=== PATIENT | female | born 1995 | race Caucasian/White ===

== ENCOUNTER 2016-06-12 15:49 | Emergency (ER) | payer OTHER ==
[~2016-06-12] VITALS: Ht 152.4 cm; Wt 84.5 kg
[~2016-06-12 15:49] MED LIST: DOXY25TA46 PO; PREN1TAB25 PO; PYR50 PO
[2016-06-12 15:53] VITALS: BP 112/70; PULSE 71; RESP 20; O2SAT 95
[2016-06-12 16:40] VITALS: BP 119/46; PULSE 70; RESP 19; O2SAT 97
[2016-06-12 18:10] LABS: BASOPHILS % (AUTO) 0.2 % (0-3); EOSINOPHILS % (AUTO) 0.6 % (0-5); MONOCYTES % (AUTO) 6.1 % (4-12); Mean Corpuscular Hemoglobin 28.4 pg (27.0-35.0); Mean Corpuscular Volume 84.2 fL (81-100); NEUTROPHILS % (AUTO) 71.3 % (40-74); Platelet Count 232 bil/L (150-400)
[2016-06-12 18:31] LABS: TROPONIN T < 0.010 ug/L (0.0-0.011)
--- NOTE | 2016-06-12 18:36 | ED.REPORT ---
HPI-Chest Pain Under 40 Date of Service Jun 12, 2016 ED Provider: Jono Robles MD Pt is a 21 year old female 33 weeks presenting to the ED complaining of intermittent chest pain and tightness radiating down her arms onset 4 days ago. Associated symptoms include fatigue, SOB, lightheadedness, dizziness, diaphoresis, chills. Denies pain with inspiration, bleeding, abd cramping, cough. She states that she has been having episodes consistently for the past 4 days which last up to 30 or 45 minutes. She also reports hx of palpitations which have started again since being . Pt was seen at [facility] today and told to come to the ER. Nursing Notes Stated Complaint: CHEST PAIN//WENT TO [facility] FIRST Chief Complaint: Chest Pain Nursing Notes Reviewed: Yes Allergies: Coded Allergies: No Known Allergies (Unverified , 06/12/16) Scheduled Vit#96/Ferrous Fum/FA ( Tablet) 1 Each Tablet 1 EACH PO DAILY Pyridoxine (Vitamin B-6) 50 Mg Tablet 50 MG PO DAILY Scheduled PRN Doxylamine Succinate (Unisom) 25 Mg Tablet 25 MG PO BID PRN PRN For Nausea General Time Seen by MD: 18:29 Chief Complaint Chest pain Hx Obtained From: Patient Arrived By: Walk-in Sudden in Onset?: No Onset Occurred: 4 days ago Symptom Duration: Intermittent Location: : Chest left: Chest right Quality: Painful Severity: Current: Mild Severity: Maximum: Moderate Recent Healthcare: No recent hospitalization, Recent doctor visit Similar Sx Previous: No Past Medical History Past Medical History Hx of palpitations Reports hx of possible thick blood when she was a teenager Past Surgical History none reported Smoking History Current Every Day Smoker Social History Alcohol Use: Denies alcohol use Drug Use: Denies drug use Ambulatory Status Independent Review of Systems Constitutional: Reports: Chills, Fatigue Respiratory: Reports: Shortness of breath, Denies: Non-productive cough Cardiovascular: Reports: Chest pain, Palpitations GI: Denies: Abdominal pain Skin: Reports Diaphoresis Neurologic: Reports: Dizziness, Lightheaded Complete sys rev & neg: except as marked. Physical Exam Initial Vital Signs Vital Signs (First) Date Time Temp Pulse Resp B/P Pulse Ox O2 Delivery O2 Flow Rate FiO2 06/12/16 15:53 36.4 71 20 112/70 95 Room Air Initial VS: Reviewed Head / Eyes: Atraumatic, Normocephalic, PERRL ENT: Mucous membranes moist, Conjunctiva normal, No scleral icterus Extremities: Vascular intact, Neuro intact, No swelling, No tenderness Skin: Warm, Dry, No cyanosis Neurologic: Alert, Oriented, Nonfocal Psychiatric: Mood/affect normal, Behavior normal, Normal thought content General/Constitutional: Awake, Alert, No acute distress, Well appearing Respiratory / Chest: Breath sounds NL, Breath sounds = bilat, No respiratory distress, No rales, No rhonchi, No wheezing, No chest tenderness Cardiovascular: Heart rate NL, Regular rhythm, Heart sounds NL, No gallop, No murmurs, No rubs Abdomen: Atraumatic, Non-tender, BS normoactive Interpretation & Diagnostics Lab Results Interpretation Result Diagram: 06/12/165 06/12/165 Test 06/12/16 17:55 White Blood Count 10.1th/mm3 (3.8-10.1) Red Blood Count 4.37mil/mm3 (3.90-5.20) Hemoglobin 12.4g/dL (12.0-15.6) Hematocrit 36.8% (35.0-46.0) Mean Corpuscular Volume 84.2fL (81-100) Mean Corpuscular Hemoglobin 28.4pg (27.0-35.0) Mean Corpuscular Hemoglobin Concent 33.7% (32.0-37.0) Red Cell Distribution Width 12.1% (12.3-15.4) Platelet Count 232bil/L (150-400) Neutrophils (%) (Auto) 71.3% (40-74) Lymphocytes (%) (Auto) 21.1% (14-46) Monocytes (%) (Auto) 6.1% (4-12) Eosinophils (%) (Auto) 0.6% (0-5) Basophils (%) (Auto) 0.2% (0-3) D-Dimer 1.1mg/L (<0.50) Sodium Level 136mEq/L (134-144) Potassium Level 4.4mEq/L (3.5-5.2) Chloride Level 102mEq/L (97-108) Carbon Dioxide Level 21mmol/L (18-29) Blood Urea Nitrogen 4mg/dL (6-20) Creatinine 0.52mg/dL (0.57-1.00) Estimat Glomerular Filtration Rate 211mL/min (>59) Glucose Level 83mg/dL (60-99) Calcium Level 8.9mg/dL (8.5-10.1) Magnesium Level 1.8mg/dL (1.6-2.6) Total Bilirubin 0.3mg/dL (0.0-1.2) Aspartate Amino Transf (AST/SGOT) 15U/L (0-50) Alanine Aminotransferase (ALT/SGPT) 8U/L (0-32) Alkaline Phosphatase 125U/L (25-150) Troponin T < 0.010ug/L (0.0-0.011) Total Protein 6.5g/dL (6.4-8.4) Albumin 3.5g/dL (3.4-5.0) Hold Garcia Top Tube Received (Received) ECG Interpretation Time: 16:03 Interpreted by: ED physician Normal ECG Interpretation: Normal rate, Normal sinus rhythm X-Ray Chest Interpretation Chest Xray Interpretation: IMPRESSION: No acute disease Dictated by: Harry Smith M.D. on 06/12/2016 at 19:04 View: Portable, 1 view Interpretation / Wet Read by: Interpret - Radiologist CT Chest Interpretation IMPRESSION: No pulmonary embolism. No acute consolidation. Dictated by: Harry Smith M.D. on 06/12/2016 at 20:48 Study type: CT pulm angiogram Interpretation / Wet Read by: Interpret - Radiologist Re-Eval/Medical Decision Re-Evaluation/Progress : Time of Eval: 21:15 Patient Status: Condition improved Re-Evaluation/Progress Note: Discussed x ray and CT results and plan for discharge. Pt understands and agrees with plan. All pt questions addressed. Pt ready to go home. Counseled Regarding: Diagnosis, Lab results, Need for follow-up, When/why to return to ED Discharge & Departure Primary Impression: Chest pain Chest pain type: unspecified Qualified Code: R07.9 - Chest pain, unspecified Disposition: Home Discharge Condition All VS Reviewed: Yes Condition: Improved Additional Instructions: ED evaluation included interview, exam, ECG and Chest CT. No serious cause for chest pain is found tonight. It is safe to go home and use tylenol as needed for pain. If you have fevers or shortness of breath, re-check in ED. Follow up with your OB doctor soon. Referrals: Boston Calderon MDibsergey Attestation Portions of this note were transcribed by Rosa Orantes. I, Dr. Robles personally performed the history, physical exam and medical decision-making; I reviewed and confirmed the accuracy of the information in the transcribed note. Signed by : Jeri Trinh, 06/12/2016 and 2121. copies to: Boston Calderon MD; Leah Wyatt Donald L MD Jun 12, 2016 18:36 ROSA ORANTES Jun 12, 2016 18:52
[2016-06-12 18:37] LABS: Magnesium 1.8 mg/dL (1.6-2.6)
[2016-06-12] MEDS ORDERED: 0.9% Sodium Chloride 1,000 ML IV ONE (18:55)
--- NOTE | 2016-06-12 19:06 | DRSVH ---
PROCEDURE: X-RAY CHEST ONE VIEW, PORTABLE ([id number]) INDICATIONS: chest pain TECHNIQUE: One view of the chest was acquired. COMPARISON: None. FINDINGS: Surgical changes and devices: None. Lungs and pleura: No pleural effusions or pneumothorax. Lungs are clear. Mediastinum: Mediastinal contours appear normal. Heart size is normal. Bones and chest wall: No suspicious bony lesions. Overlying soft tissues appear unremarkable. IMPRESSION: No acute disease Dictated by: Harry Smith M.D. on 06/12/2016 at 19:04 Approved by: Harry Smith M.D. on 06/12/2016 at 19:04
--- NOTE | 2016-06-12 20:52 | DRSVH ---
PROCEDURE: CT ANGIO CHEST PULMONARY EMBOLISM ([id number]) INDICATIONS: chest pain concern for PE TECHNIQUE: After the administration of intravenous contrast, 2 mm thick sections acquired from the pulmonary api sakshi to the posterior costophrenic angles. 3-dimensional maximum intensity projection (MIP) coronal a nd sagittal reformats were then acquired through the thorax. For radiation dose reduction, the follo wing was used: automated exposure control, adjustment of mA and/or kV according to patient size. COMPARISON: None. FINDINGS: Image quality: Excellent. Pulmonary arteries: Pulmonary arteries are normal in size, and demonstrate no intraluminal filling d efects to suggest central pulmonary embolism. Lungs and pleura: Lungs are clear. No pleural effusions or pneumothorax. Central and peripheral ai rways are patent. Mediastinum: Heart size is normal, without pericardial effusion. No mediastinal or hilar adenopathy . Thoracic aorta is normal in caliber and enhancement. Esophagus is normal in caliber, without hiat al hernia. Bones and chest wall: No suspicious bony lesions. Ribs and thoracic spine appear intact throughout. Thyroid gland negative. No axillary or supraclavicular adenopathy. Abdomen: Visualized upper abdominal solid organs appear normal in the early arterial phase of enhanc ement. IMPRESSION: No pulmonary embolism. No acute consolidation. Dictated by: Harry Smith M.D. on 06/12/2016 at 20:48 Approved by: Harry Smith M.D. on 06/12/2016 at 20:50
[2016-06-12 21:29] VITALS: BP 122/52; PULSE 70; RESP 19; O2SAT 97
== END 2016-06-12 21:31 | disposition home or self-care (01) ==
LOC: SED 15:49
DX: O26.893 Other specified pregnancy related conditions, third trimester (principal); O99.333 Smoking (tobacco) complicating pregnancy, third trimester; R07.89 Other chest pain; Z3A.33 33 weeks gestation of pregnancy
CPT/HCPCS: 36415; 71010; 71275; 80053; 83735; 84484; 85025; 85379; 93005; 99285; G0463; J7030; Q9967

== ENCOUNTER 2016-08-06 07:05 | Inpatient (IN) | payer OTHER ==
[~2016-08-06] VITALS: Ht 152.4 cm; Wt 84.8 kg
[2016-08-06] MEDS ORDERED: Methylergonovine 0.2 mg/mL Inj IM PRN (07:20)
[2016-08-06] MEDS ORDERED: Oxytocin 30 Units/500 mL LR 30 UNITS in IV Premix 1 EACH IV PRN ×2 (07:20→08:05)
[2016-08-06] MEDS ORDERED: Hemorrhage Kit, Post Partum XX ONE (07:20)
[2016-08-06] MEDS ORDERED: Sodium Chloride LOK Flush 10 mL Syringe IVFLUSH PRN (07:20)
[2016-08-06] MEDS ORDERED: Carboprost 250 mCg/mL Inj IM PRN (07:20)
[2016-08-06] MEDS ORDERED: Oxytocin 10 Unit/mL Inj IM PRN (07:20)
[2016-08-06] MEDS ORDERED: Ondansetron 2 mg/mL 2 mL Inj IVPUSH PRN ×2 (08:10→09:00)
[2016-08-06] MEDS ORDERED: Penicillin G K Inj 5,000,000 UNITS in Dextrose 5% Minibag Plus 100 ML IV ONE (08:10)
--- NOTE | 2016-08-06 08:21 | PCM.HPOB ---
Subjective Date of Service: Aug 06, 2016 Referring Provider: Admitting Physician: Mara Rodriguez MD Primary Care Physician: Leah Wyatt Attending Physician: Mara Rodriguez MD Chief Complaint Contractions and planned induction History of Present History of Present Illness The patient is a 21-year-old female at 41 weeks 4 days with EDC of who presents for induction. is complicated by tobacco use, varicella nonimmune, and group B strep positive. Patient has been alis every 3-5 minutes for the last 24-36 hours. She is currently alis every 2-4 minutes with contractions lasting 40 seconds. Spontaneous rupture of membranes at 0820 with some meconium staining. movement is present and baseline heart rate is 130 with a category 1 tracing. Patient states pain is a 8 out of 10. She would like to have an epidural placed. She has some nausea but no emesis. She denies any shortness of breath, chest pain, labs include AB+, antibody screen negative, varicella nonimmune, rubella immune, hepatitis B surface antigen negative, HIV nonreactive, and group B strep positive. OB History: (1), Para (0) Past Medical History Obstetrical History: Gynecologic History: Pap smear on 02/01/16 normal Medical History: None Surgical History: None Hx Tobacco Use: Yes Smoking Status: Current Every Day Smoker Hx Alcohol Use: No Hx Substance Use: No Past Family History Family History Mother - DM Father - HTN Genetic Screening/Counseling Genetic Screening/Counseling: Negative Baby father-had child w defect: No Review of Systems Constitutional: Y: Change of appitite, Chills, Dizziness, Fever, Malaise, Other , Pain, Sweats, Weakness, Weight loss Eyes: Denies: Blurred Vision, Conjunctive Inflammation, Double Vision, Eyelid Inflammation, Other, Pain, Redness, Vision Changes Cardiovascular: Denies: Chest Pain, Edema, Orthopnea, Other, Palpitations, SOB while laying flat Respiratory: Denies: Cough, Cough with bloody sputum, Other, Pleuritic Chest Pain, Pleuritic Chest Pain, SOB with Exertion, Sputum, Wheezing Gastrointestinal: Reports: Abdominal Pain Genitourinary: Denies: Anuria, Change in Frequency, Dysuria, Hematuria, Incontinence, Nocturia, Other, Retention Musculoskeletal: Denies: Back Pain, Deformity, Limitation of Function, Neck Pain, Other, Redness, Shoulder Pain, Swelling Skin/Breasts: Denies: Bruising, Discharge, Dry or Flakiness, Jaundice, Lesions , Masses, Mastalgia, Other, Rash, Scars, Ulcers Neurological: Denies: Change in Speech, Confusion, Dizziness, Incoordination, Numbness, Other, Seizures, Somnolence, Tremors, Weakness Psychologic: Denies: Agitation, Anxious, Apprehensive, Depression, Insomnia, Instability, Nervousness, Other Hematologic: Denies: Abnormal bleeding, Adenopathy, Bruising, Other Medications Home medications vitamins Allergy Coded Allergies: No Known Allergies (Unverified , 06/12/16) Exam Vital Signs Afebrile, blood pressure 124/73, pulse 106, respiratory rate 20 Exam heart rate 130s at baseline with a category 1 tracing Constitutional: Well-developed, Well-nourished HEENT: Atraumatic, PERRLA, EOMI, Scleral Anicteric Lungs: Clear to Auscultation, Normal Air Movement Heart: Regular Rate/Rhythm, Normal S1, Normal S2, No Murmurs/Rubs/Gallops Abdomen: Gravid, Normal bowel sounds Extremities: Pulses Palpable x4, Other (lower extremity edema) Neurological/Psychiatric: Alert, Oriented X3, Mild Distress Neuro: Grossly Neurologically Intact Additional Information Cervical exam: 2 cm dilated, and -2 station, 100% effaced Labs/Diagnostics Labs Results pending Maternal Blood Type: AB Hx Rho(D) Immune Globulin: No Antibody Screen: negative Group B Strep Results: Positive Previous with GBS: No Rubella: Immune OB Intrapartum Assessment/Plan Assessment 1. Term intrauterine in active labor with spontaneous rupture of membranes at 0820. 2. Tobacco use during . 3. Group B strep positive. 4. Varicella nonimmune. Pain Management: Epidural planned Intrapartum plan 1. Routine labor care and lab work. 2. Pain control: Epidural to be placed by Dr. Chávez. 3. Penicillin G 5 million units IV for initial dose followed by 3 million units every 4 hours 4. Smoking cessation counseling provided. 5. Augmentation of labor with Pitocin if needed. Attending Statement The patient was seen and examined together with Dr. Ziyad Dela Cruz DO on 2016 and I agree with the history, exam and plan as outlined in the note above. ZIYAD DELA CRUZ DO Aug 06, 2016 08:21 Amber Gar MD Aug 09, 2016 12:00
--- NOTE | 2016-08-06 08:55 | PCM.HPANE ---
Patient Data Surgeon Admitting Provider:Mara Rodriguez MD Attending Provider:Mara Rodriguez MD Primary Care Physician:Leah Wyatt Other Provider:Ella Gandhiingham Anesthesia Reason for Visit Induction INDUCTION Ht/WT & BMI Body Mass Index Allergies Coded Allergies: No Known Allergies (Unverified , 06/12/16) Diabetes History Hx Diabetes?: No Medications Active Scripts Pyridoxine (Vitamin B-6)50 Mg [id number] Mg PO DAILY #30 TABLET Prov:Corky Rizo MD 01/25/16 Doxylamine Succinate (Unisom)25 Mg [id number] Mg PO BID PRN For Nausea #30 TABLET Prov:Corky Rizo MD 01/25/16 Reported Medications Vit#96/Ferrous Fum/FA ( Tablet)1 Each Tablet1 Each PO DAILY 12/17/15 History Cardiovascular History: Denies:: Congestive Heart Failure Hypertension Respiratory History: Denies:: Tuberculosis Hx Surgeries?: No Hx Diabetes: No Hx Alcohol Use: NoHx Substance Use: No Smoking Status: Current Every Day Smoker Stop/Bang Risk Assessment Category Category 1A: Patient has history of documented sleep apnea, and HAS NOT received any narcotic, sedative or anesthesia administration during this stay. Category 1B: Patient has history of documented sleep apnea, and HAS received any narcotic , sedative or anesthesia administration during this stay Category 2: Patient has SUSPECTED Obstructive Sleep Apnea, and HAS received any narcotic , sedative or anesthesia administration during this stay. Category 3: Patient has SUSPECTED Obstructive Sleep Apnea and HAS NOT received narcotic, sedative or anesthesia administration during this stay. Category 4: Outpatient in Procedural Areas with known sleep apnea or who screen positive for High Risk via the STOP/BANG questionnaire. Exam Exam General Appearance: Alert, Oriented X3, Cooperative HEENT/AIRWAY: MP 2, Neck Movement (from), Mouth Opening (wnl) Lungs: Normal Air Movement Plan Impression Patient chart reviewed, patient interviewed and anesthestic plan with risks, benefits, and alternatives discussed, and informed consent obtained. ASA Physical Status: ASA2 Mod Systemic Disease Anesthetic Plan: Epidural HP Complete Prior to Induction: Yes Scar Chávez MD Aug 06, 2016 08:55
[2016-08-06] MEDS ORDERED: Lactated Ringer's 500 ML IV ONE (08:56)
[2016-08-06] MEDS ORDERED: Atropine 1 mg/10 mL (Code) Syringe IVPUSH PRN (09:00)
[2016-08-06] MEDS ORDERED: EPHEDrine Sulfate 50 mg/mL Inj IVPUSH PRN (09:00)
[2016-08-06] MEDS: Lactated Ringer's 1,000 ML IV PRN ×3 (09:08→14:30)
[2016-08-06 09:16] LABS: Mean Corpuscular Volume 80.1 fL (81-100)
--- NOTE | 2016-08-06 10:33 | PCM.ANEP1 ---
Post Anesthesia Phase 1 PACU Phase 1 Assessment Date of Service: Aug 06, 2016 Anesthetic Administered: Epidural Level of Alertness: Awake, talking CARRANZA's with Equal Strength: Yes Pain: Yes Nausea or Vomiting: No Oxygen Delivery: Room Air Lungs: Normal Air Movement Dermatome Level: T10 (Umbilicus) Scar Chávez MD Aug 06, 2016 10:33
[2016-08-06] MEDS ORDERED: Ondansetron 2 mg/mL 2 mL Inj ONE (10:59)
[2016-08-06] MEDS ORDERED: fentaNYL-PF 50 mCg/mL 2 mL Inj ONE (10:59)
[2016-08-06] MEDS ORDERED: Oxytocin 10 Unit/mL Inj ONE (10:59)
[2016-08-06] MEDS ORDERED: Lidocaine PF 1% 30 mL Inj ONE (10:59)
[2016-08-06] MEDS ORDERED: Morphine PF 1 mg/mL 10 mL Inj ONE (10:59)
[2016-08-06] MEDS: Penicillin G K Inj 3,000,000 UNITS in IV Premix 1 EACH IV SCH ×3 (13:08→20:55)
[2016-08-06] MEDS: Lactated Ringer's 1,000 ML IV SCH ×5 (15:34→23:20)
[2016-08-06] MEDS: fentaNYL 2 mCg/mL-Bupiv 0.125% 100 ML EPIDURAL SCH ×2 (16:41→22:29)
--- NOTE | 2016-08-06 17:28 | PCM.PNOBIP ---
Subjective Date of Service Aug 06, 2016 Delivery plan: Spontaneous Vaginal Delivery Visit History The patient is a 21-year-old female at 41 weeks 4 days with EDC of who presents for induction. is complicated by tobacco use, varicella nonimmune, and group B strep positive. Patient has been alis every 3-5 minutes for the last 24-36 hours. Spontaneous rupture of membranes at 0820 with some meconium staining. movement is present and baseline heart rate is 130 with a category 1 tracing. Patient states pain is a 8 out of 10. Epidural has been placed. She has been started on Pitocin. IUPC and scalp monitor have been placed at 5 pm for better monitoring. She has some nausea but no emesis. Subjective Patient is feeling pelvic pressure and contractions. She is getting tired and emotional. Pitocin has been decreased as she was alis every minute. She is still c/o nausea but no emesis. She has IUPC and scalp monitor in place. Pain Management: Epidural Group B Strep Results: Positive Rubella: Immune Blood Type: AB Labs Laboratory Tests 08/06/16 09:00: White Blood Count 11.7, Red Blood Count 4.63, Hemoglobin 12.5, Hematocrit 37.1, Mean Corpuscular Volume 80.1, Mean Corpuscular Hemoglobin 27.0, Mean Corpuscular Hemoglobin Concent 33.7, Red Cell Distribution Width 13.7, Platelet Count 254 Exam Vital Signs Vital Signs Vital Signs Date Time Temp Pulse Resp B/P Pulse Ox O2 Delivery O2 Flow Rate FiO2 08/06/16 10:33 Room Air Contraction frequency in minutes: MVUs: Vital Signs: VS reviewed, stable Heart Tracings Heart Tones Baseline 130-150 bpm Heart Rate Variability: Moderate Heart Rate Accelleration: Present Heart Rate Category: I Tocometry/IUPC Contraction frequency in minutes:1-2 Sterile Vaginal Exam Cervical Dilation: 5 cms Cervical Effacement: 100 % Station: -1 Exam Abdomen: Fundus firm Extremities: No tenderness/swelling Lungs: Normal Air Movement Heart: Regular Rate/Rhythm, Normal S1, Normal S2, No Murmurs/Rubs/Gallops General: Alert, Oriented X3, Cooperative OB Intrapartum Assessment/Plan Assessment 1. Term intrauterine in active labor with spontaneous rupture of membranes at 0820. 2. Tobacco use during . 3. Group B strep positive. 4. Varicella nonimmune. Pain Management: Epidural planned Intrapartum plan 1. Continue routine labor care 2. Pain control: Epidural to be placed by Dr. Chávez. 3. IUPC and scalp monitor placed by Dr. Gar 3. Continue Penicillin IV 3 million units every 4 hours 4. Continue augmentation of labor with Pitocin if needed Attending Statement The patient was seen and examined together with Dr. Dora Reyes DO on 2016 and I agree with the history, exam and plan as outlined in the note above. Dora Reyes DO Aug 06, 2016 17:28 Amber Gar MD Aug 09, 2016 12:02
[2016-08-06 21:20] LABS: Mean Corpuscular Hemoglobin 26.8 pg (27.0-35.0); Mean Corpuscular Volume 82.3 fL (81-100)
[2016-08-06] MEDS ORDERED: Sodium Citrate-Citric Acid 15 mL Solution PO SCH (23:25)
[2016-08-06] MEDS ORDERED: CeFAZolin Inj 2 GM in IV Premix 1 EACH IV ONE (23:25)
[2016-08-06] MEDS ORDERED: Sodium Citrate-Citric Acid 15 mL Solution ONE (23:31)
[2016-08-06] MEDS ORDERED: Ampicillin 2,000 mg Inj ONE (23:40)
[2016-08-06] MEDS ORDERED: 0.9% Sodium Chloride 50 ML IV ONE (23:41)
[2016-08-07] MEDS ORDERED: Morphine PF 1 mg/mL 10 mL Inj EPIDURAL ONE
[2016-08-07] MEDS ORDERED: Atropine 0.4 mg/mL Inj IV PRN
[2016-08-07] MEDS ORDERED: Ondansetron 2 mg/mL 2 mL Inj IVPUSH PRN
[2016-08-07] MEDS ORDERED: Dexamethasone 4 mg/mL Inj IVPUSH PRN
[2016-08-07] MEDS ORDERED: EPHEDrine Sulfate 50 mg/mL Inj IVPUSH PRN
[2016-08-07] MEDS ORDERED: fentaNYL-PF 50 mCg/mL 2 mL Inj IVPUSH PRN
[2016-08-07] MEDS ORDERED: HYDROmorphone 1 mg/mL Inj IVPUSH PRN
[2016-08-07] MEDS: Penicillin G K Inj 3,000,000 UNITS in IV Premix 1 EACH IV SCH ×6 (00:30→20:30)
[2016-08-07] MEDS: Lactated Ringer's 1,000 ML IV SCH ×7 (00:56→17:27)
[2016-08-07] MEDS ORDERED: Carboprost 250 mCg/mL Inj IM PRN (01:30)
[2016-08-07] MEDS ORDERED: Oxytocin 30 Units/500 mL LR 30 UNITS in IV Premix 1 EACH IV PRN (01:30)
[2016-08-07] MEDS ORDERED: Oxytocin 10 Unit/mL Inj IM PRN (01:30)
[2016-08-07] MEDS ORDERED: hydrOXYzine Pamoate 25 mg Capsule PO PRN (01:30)
[2016-08-07] MEDS ORDERED: LANOlin HPA 7 Gm Ointment TOPICAL PRN (01:30)
[2016-08-07] MEDS ORDERED: Promethazine 50 mg Rectal Suppository RECTAL PRN (01:30)
[2016-08-07] MEDS ORDERED: Sodium Chloride LOK Flush 10 mL Syringe IVFLUSH PRN (01:30)
[2016-08-07] MEDS ORDERED: Hemorrhage Kit, Post Partum XX ONE (01:30)
[2016-08-07] MEDS ORDERED: Methylergonovine 0.2 mg/mL Inj IM PRN (01:30)
--- NOTE | 2016-08-07 01:39 | PCM.ANEP1 ---
Post Anesthesia Phase 1 PACU Phase 1 Assessment Date of Service: Aug 06, 2016 Anesthetic Administered: Epidural Level of Alertness: Sleepy, easy to arouse CARRANZA's with Equal Strength: No Pain: No Nausea or Vomiting: No Oxygen Delivery: Room Air Lungs: Normal Air Movement Dermatome Level: T10 (Umbilicus) Summary HR 148, RR 17, Level = T-10, RA SPO2= 98%,No N/V, BP = 117/66 Scar Chávez MD Aug 07, 2016 01:39
[2016-08-07] MEDS: Acetaminophen IV 1,000 MG in IV Premix 1 EACH IV PRN ×2 (03:22→09:44)
[2016-08-07] MEDS ORDERED: Promethazine 25 mg Rectal Suppository RECTAL PRN (04:06)
--- NOTE | 2016-08-07 05:21 | PCM.ANEP2 ---
Post Anesthesia Evaluation ASA/CMS Post Anesthesia VS in Patient's Normal Range?: Yes Resp Stable; Airway Patent?: Yes CV Function & Hydration Stable: Yes Mental Status Recovered?: Yes Pain control Satisfactory?: Yes N/V Control Satisfactory?: Yes Scar Chávez MD Aug 07, 2016 05:21
[2016-08-07] MEDS: Ascorbic Acid 500 mg Tablet PO SCH (19:21)
[2016-08-07] MEDS: oxyCODONE-Acetamin 5-325 mg Tablet PO PRN (19:22)
[2016-08-08] MEDS: oxyCODONE-Acetamin 5-325 mg Tablet PO PRN ×2 (00:18→05:55)
[2016-08-08 06:05] LABS: Mean Corpuscular Hemoglobin 27.3 pg (27.0-35.0); Mean Corpuscular Volume 83.8 fL (81-100)
[2016-08-08] MEDS ORDERED: Ascorbic Acid PO (06:48)
[2016-08-08] MEDS ORDERED: IBUP800T28 PO (06:48)
[2016-08-08] MEDS ORDERED: DOCU-41 PO (06:48)
[2016-08-08] MEDS ORDERED: OXYC1TAB24 PO (06:48)
[2016-08-08] MEDS ORDERED: FERR-74 PO (06:48)
[2016-08-08] MEDS: Ascorbic Acid 500 mg Tablet PO SCH (07:40)
--- NOTE | 2016-08-08 07:49 | PCM.DIOB ---
Obstetrical Disch Instruction Date of Service: Aug 08, 2016 Dates of Hospitalization Date of Hospital Admission Aug 06, 2016 at 07:05 Providers Admitting Physician: Mara Rodriguez MD Primary Care Physician: Leah Wyatt Attending Physician: Mara Rodriguez MD Discharge Diagnosis Discharge Diagnosis 1. G1 now P1 postop day 1 after 2. Tobacco use during . 3. Group B strep positive. 4. Varicella nonimmune. Problems: Diet Discharge Diet: No restrictions Activity Discharge Activity-General: Pelvic Rest for 6 weeks, Be up and about, Balance rest and activity, Activity as pain allows, Activity as energy allows, No lifting >10 pounds for 4-6 weeks Dressing and Incisional Care Dressing Care: Allow Steri Stripes to fall off Hygiene: May shower, DO NOT soak incision under water, NO bathtub, hot tub or whirlpool, Sitz bath Additional Instructions Discharge Instructions Continue your vitamin. Please take the iron and vitamin c together for your anemia. Do not take more pain medication (Percocet) than is necessary -- less is better. Percocet pills have Tylenol (acetaminophen) in them at 325mg per pill. Do not take Tylenol in addition to your pain medication but should take one or the other. Both iron and Percocet can give you constipation so you have also been given a prescription for docusate to keep you regular. Be sure to follow up in 2 weeks and then again in 6 weeks at [facility]. Pelvic rest for 6 weeks (nothing per vagina including intercourse, tampons) If you have a fever greater than 100.4, please call [facility]. There is always someone tongue and quarter stitcher to talk to. If you have an increase in bleeding, call [facility]. If you have a lot of bleeding suddenly, especially if you have symptoms of dizziness & weakness with it, get emergency help. If you start experiencing extreme depression, especially if you feel that you are a danger to yourself or your family, seek emergency help. You have been through a lot -- BE SURE TO TAKE CARE OF YOURSELF. You have been sent home with the following prescriptions: - Percocet 5/325 mg, take 1 tab every 4-6 hours as needed for pain. - Colace 100 mg twice a day as needed for constipation. - Ferrous sulfate 325 mg every day. - Vitamin C 500 mg every day. Take with iron. - Ibuprofen 800mg take 1 tab every 8 hours as needed for pain. Follow Up Plan Follow Up Plan Follow up in 2 and 6 weeks with [facility] Follow-up Provider (F9): Mara Rodriguez MD Follow-up appointment: Weeks (2 and 6) ZIYAD DELA CRUZ DO Aug 08, 2016 06:40
--- NOTE | 2016-08-08 07:57 | PCM.DC.OB ---
Obstetrical Discharge Summary Date of Service Aug 08, 2016 Date of hospital admission Aug 06, 2016 at 07:05 Date of Discharge: Aug 08, 2016 Providers Admitting Physician: Mara Rodriguez MD Primary Care Physician: Leah Wyatt Attending Physician: Mara Rodriguez MD Diagnosis at Time of Discharge 1. G1 now P1 postop day 1 after 2. Tobacco use during . 3. Group B strep positive. 4. Varicella nonimmune. Problems: Invasive procedures Primary Date of Procedure: Aug 07, 2016 Brief History and Physical: Per H&P: The patient is a 21-year-old female at 41 weeks 4 days with EDC of who presents for induction. is complicated by tobacco use, varicella nonimmune, and group B strep positive. Patient has been alis every 3-5 minutes for the last 24-36 hours. She is currently alis every 2-4 minutes with contractions lasting 40 seconds. Spontaneous rupture of membranes at 0820 with some meconium staining. movement is present and baseline heart rate is 130 with a category 1 tracing. Patient states pain is a 8 out of 10. She would like to have an epidural placed. She has some nausea but no emesis. She denies any shortness of breath, chest pain, labs include AB+, antibody screen negative, varicella nonimmune, rubella immune, hepatitis B surface antigen negative, HIV nonreactive, and group B strep positive. Hospital Course: The patient is a 21-year-old G1 now P1 female who presented at 41 weeks 4 days with EDC of 07/26/16 for induction. was complicated by tobacco use, varicella nonimmune, and group B strep positive. Patient had spontaneous rupture of membranes on 08/06 at 0820. Pitocin was started due to failure to progress. Contractions became too close together Pitocin had to be decreased. Patient failed to make progress and was taken for primary on 08/07. Penicillin was given intrapartum due to group B strep. ([Ascorbic Acid]) 500 MG TABLET 500 MG PO DAILYWM Prescribed by: ZIYAD DELA CRUZ DO Docusate Sodium (Colace) 100 Mg Capsule 100 MG PO BID Prescribed by: ZIYAD DELA CRUZ DO Ferrous Sulfate (Feosol) 325 Mg Tablet 325 MG PO DAILY Prescribed by: ZIYAD DELA CRUZ DO Ibuprofen (Ibuprofen) 800 Mg Tablet 800 MG PO Q6H PRN PRN For Pain Prescribed by: ZIYAD DELA CRUZ DO Vit#96/Ferrous Fum/FA ( Tablet) 1 Each Tablet 1 EACH PO DAILY ( Reported) oxyCODONE-Acetaminophen 5-325 mg (oxyCODONE-Acetaminophen 5-325 mg) 1 Each Tablet 1 TAB PO Q4-6H PRN PRN For Pain Prescribed by: ZIYAD DELA CRUZ DO Discontinued Medications Doxylamine Succinate (Unisom) 25 Mg Tablet 25 MG PO BID PRN PRN For Nausea Prescribed by: BHARAT CALHOUN MD Pyridoxine (Vitamin B-6) 50 Mg Tablet 50 MG PO DAILY Prescribed by: BHARAT CALHOUN MD Discharge Medications: - Percocet 5/325 mg, take 1 tab every 4-6 hours as needed for pain. - Colace 100 mg twice a day as needed for constipation. - Ferrous sulfate 325 mg every day. - Vitamin C 500 mg every day. Take with iron. - Ibuprofen 800mg take 1 tab every 8 hours as needed for pain. Follow-up plan Follow up in 2 and 6 weeks with [facility] Discharge Diet: No restrictions Discharge Activity-General: Pelvic Rest for 6 weeks, Try not to overdue, Be up and about, Balance rest and activity, Activity as pain allows, Activity as energy allows, Other (No lifting >10 pounds for 4-6 weeks) Patient instructions Continue your vitamin. Please take the iron and vitamin c together for your anemia. Do not take more pain medication (Percocet) than is necessary -- less is better. Percocet pills have Tylenol (acetaminophen) in them at 325mg per pill. Do not take Tylenol in addition to your pain medication but should take one or the other. Both iron and Percocet can give you constipation so you have also been given a prescription for docusate to keep you regular. Be sure to follow up in 2 weeks and then again in 6 weeks at [facility]. Pelvic rest for 6 weeks (nothing per vagina including intercourse, tampons) If you have a fever greater than 100.4, please call [facility]. There is always someone destination coordinator to talk to. If you have an increase in bleeding, call [facility]. If you have a lot of bleeding suddenly, especially if you have symptoms of dizziness & weakness with it, get emergency help. If you start experiencing extreme depression, especially if you feel that you are a danger to yourself or your family, seek emergency help. You have been through a lot -- BE SURE TO TAKE CARE OF YOURSELF. You have been sent home with the following prescriptions: - Percocet 5/325 mg, take 1 tab every 4-6 hours as needed for pain. - Colace 100 mg twice a day as needed for constipation. - Ferrous sulfate 325 mg every day. - Vitamin C 500 mg every day. Take with iron. - Ibuprofen 800mg take 1 tab every 8 hours as needed for pain. ZIYAD DELA CRUZ DO Aug 08, 2016 07:56
[2016-08-08 10:26] VITALS: BP 119/59; PULSE 72; RESP 18
--- NOTE | 2016-08-08 22:39 | OP ---
[address] [address] OPERATIVE REPORT PATIENT: SOFIA MCCOLLUM : 1995 MR#: [id number] ADMIT: 08/06/2016 JOB ID: [id number] DATE OF SURGERY: 08/07/2016 PREOPERATIVE DIAGNOSIS(ES): 1. Arrest of dilatation. 2. Intrauterine at 41 weeks and 4 days. POSTOPERATIVE DIAGNOSIS(ES): 1. Arrest of dilatation. 2. Intrauterine at 41 weeks and 4 days. 3. Status post primary section. OPERATION: Low transverse section via Pfannenstiel skin incision. SURGEON: Karly Perla MD. MONUMENT ERECTOR: Tania Reeder MD. Stretch Machine Operator was required for retraction and exposure and safe delivery of the . COMPLICATIONS: None. ESTIMATED BLOOD LOSS: 700 mL. IV FLUIDS: 1100 mL. URINE OUTPUT: 150 mL. ANESTHESIA: Epidural. FINDINGS: Normal uterus, tubes, and ovaries. Meconium-stained amniotic fluid. Cephalic presented fetus was high in the pelvis with one nuchal cord. Weight 3878 g, equivalent to 8 pounds 9 ounces. Apgars 7 at one minute and 9 at five minutes. INDICATION: This is a 21-year-old, 1, para 0, presented in active labor at 41 weeks and 4 days with spontaneous rupture of membranes at 8:20, August 06, 2016, meconium stained fluid, patient was alis. At presentation, cervix was 2 cm, and 100% effaced, and -2 station. Patient continued to contract and made cervical change up to 3 cm. That was 6 hours later after membrane rupture. Pitocin was started for augmentation at around 1400 hours, August 06, 2016. Patient progressed in labor to 6 cm dilated at 18:43 with no cervical change. Four hours later, cervix remained at 6 cm, 100%, and -1 station. The patient was offered primary section for arrest of dilatation. Risks and benefits and alternatives of section were discussed with the patient in details. All questions were answered. Informed consent was signed. PROCEDURE IN DETAIL: After informed consent was obtained, the patient was taken to the operation room. Epidural anesthesia was bolused to adequate anesthesia level. She was placed in supine position with left lateral tilt. Abdomen was prepped in usual sterile fashion. Patient was draped. A Pfannenstiel skin incision was made at the level of two finger widths above the symphysis pubis. The initial skin incision was carried down to the fascia with sharp dissection and Bovie cautery. The initial fascial incision was made with a scalpel and was extended bilaterally with curved Fajardo scissors. The inferior aspect of the fascial layer was elevated in either sides of the midline with Tanvi clamps. Underlying rectus muscles was dissected off with blunt and sharp dissection. The attention was turned to the upper edge of the fascial incision that was grasped with Tanvi clamps at either sides of the midline and was dissected off the underlying muscles with blunt and sharp dissection. The rectus muscles were in the midline. The peritoneum was entered and area cleared of vascularity. The initial peritoneal incision was extended with sharp dissection, then further re-extended with gentle traction bilaterally. Bladder blade was placed and bladder flap was created with Metzenbaum scissors. The bladder reflection was repositioned. The uterine incision was made with a scalpel. Meconium-stained fluid was noted. A cephalic presented was delivered. The 's head was noted to be high in the pelvis with large caput. The head was delivered, nuchal cord was released, shoulders delivered without difficulty. Delayed cord clamp was performed after 1 minute. was handed off to the awaiting intensive care unit team. Placenta was delivered manually intact. Uterus was exteriorized, cleared of any remaining clots and debris. Uterine incision was closed with 0-Vicryl in a running, interlocking fashion. A second imbricating layer using 0 Monocryl was performed with good hemostasis. The posterior cul-de-sac was cleared of any remaining clots and debris. The uterus was placed back into the abdominal cavity. Copious irrigation was performed to the peritoneal cavity before and after the uterus returned. The uterine incision was examined and hemostasis was ensured. Some small vessels were oozing over the bladder. FloSeal was placed with good hemostasis. Then, the rectus muscles were approximated in the midline with simple interrupted stitches of 0-chromic. The subfascial layer was examined and was hemostatic. The fascia was closed with 0-Vicryl in a running fashion. The subcutaneous tissue was approximated with simple interrupted stitches of 2-0 chromic. The skin was closed with 4-0 Vicryl in subcuticular fashion. Steri-Strips were applied. All instrument, needles, and sponge counts were correct x2. Patient tolerated the procedure well. Karly Pineda MD, was present and scrubbed for the entire procedure. MOJGAN
== END 2016-08-08 11:00 | disposition home or self-care (01) | DRG 766 ==
LOC: FBC 07:05
PROVIDERS: ADMIT Obstetrics & Gynecology; ATTEND Obstetrics & Gynecology
PROC: 3E033VJ Introduction of Other Hormone into Peripheral Vein, Percutaneous Approach (ICD-10-PCS; 2016-08-06)
PROC: 10H073Z Insertion of Monitoring Electrode into Products of Conception, Via Natural or Artificial Opening (ICD-10-PCS; 2016-08-06)
PROC: 10D00Z1 Extraction of Products of Conception, Low, Open Approach (ICD-10-PCS; principal; 2016-08-07 23:45)
DX: O62.1 Secondary uterine inertia (principal); F17.210 Nicotine dependence, cigarettes, uncomplicated; O77.0 Labor and delivery complicated by meconium in amniotic fluid; Z3A.41 41 weeks gestation of pregnancy; O99.333 Smoking (tobacco) complicating pregnancy, third trimester; O99.820 Streptococcus B carrier state complicating pregnancy; Z37.0 Single live birth

== ENCOUNTER 2017-01-11 12:30 | Emergency (ER) | payer OTHER ==
[~2017-01-11] VITALS: Ht 154.9 cm; Wt 77.0 kg
[~2017-01-11 12:30] MED LIST changes: +Ascorbic Acid PO; +DOCU-41 PO; -DOXY25TA46 PO; +FERR-74 PO; +IBUP800T28 PO; +OXYC1TAB24 PO; -PYR50 PO
[2017-01-11 12:33] VITALS: BP 108/71; PULSE 92; RESP 22; O2SAT 100
[2017-01-11] MEDS ORDERED: 0.9% Sodium Chloride 1,000 ML IV ONE ×2 (12:43→14:30)
[2017-01-11] MEDS ORDERED: Ondansetron 2 mg/mL 2 mL Inj IVPUSH ONE (12:45)
--- NOTE | 2017-01-11 13:00 | ED.REPORT ---
HPI-General Illness Date of Service Jan 11, 2017 ED Provider: Corky Rizo MD Patient is a 21 year old female at 60 weeks by LMP who presents to the ED complaining of 3 days of malaise, nausea and vomiting. Over the last 3 days pt vomited 1-2 times but since 0200 this morning, her symptoms have worsened. She now presents with intermittent, LLQ abdominal cramping associated with bouts of emesis, clear diarrhea, nausea, and vomiting. She denies cough, sore throat, dysuria, or any other symptoms. Her last period was the first week of November. She had an at home test that was positive. She has not had any vaginal bleeding. Nursing Notes Stated Complaint: VOMITING/NAUSEA Chief Complaint: Female Abdominal Pain Nursing Notes Reviewed: Yes Allergies: Coded Allergies: No Known Allergies (Unverified , 01/11/17) Scheduled ([Ascorbic Acid]) 500 MG TABLET 500 MG PO DAILYWM Docusate Sodium (Colace) 100 Mg Capsule 100 MG PO BID Ferrous Sulfate (Feosol) 325 Mg Tablet 325 MG PO DAILY Vit#96/Ferrous Fum/FA ( Tablet) 1 Each Tablet 1 EACH PO DAILY Pyridoxine (Vitamin B-6) 50 Mg Tablet 50 MG PO DAILY Scheduled PRN Doxylamine Succinate (Unisom) 25 Mg Tablet 25 MG PO DAILY PRN PRN For Nausea Ibuprofen (Ibuprofen) 800 Mg Tablet 800 MG PO Q6H PRN PRN For Pain Ondansetron ODT (Zofran ODT) 4 Mg Tablet 4 MG PO Q4H PRN PRN For Nausea oxyCODONE-Acetaminophen 5-325 mg (oxyCODONE-Acetaminophen 5-325 mg) 1 Each Tablet 1 TAB PO Q4-6H PRN PRN For Pain General Time Seen by MD: 12:42 Chief Complaint Other (NVD ) Hx Obtained From: Patient Arrived By: Walk-in Sudden in Onset?: No Onset Occurred: 3 days ago Symptom Duration: Since onset Past Medical History Past Medical History Hx of palpitations Reports hx of possible thick blood when she was a teenager Past Surgical History none reported Smoking History Current Every Day Smoker Social History Alcohol Use: Denies alcohol use Drug Use: Denies drug use Ambulatory Status Independent Review of Systems Full Review of Systems Constitutional: Reports: Fever (subjective ), Malaise Ears / Nose / Throat: Denies: Sore throat Respiratory: Denies: Non-productive cough GI: Reports: Abdominal pain, Diarrhea, Nausea, Vomiting Female: Denies: Dysuria Complete sys rev & neg: except as marked. Physical Exam Vital Signs Vital Signs Date Time Temp Pulse Resp B/P Pulse Ox O2 Delivery O2 Flow Rate FiO2 01/11/17 16:03 37.3 69 16 107/57 99 Room Air 01/11/17 12:33 36.1 92 22 108/71 100 Initial VS: Reviewed, Vital signs normal Head / Eyes: Atraumatic, Normocephalic Neck: Supple, Full range of motion Neurologic: Alert, Oriented, Nonfocal Psychiatric: Mood/affect normal, Behavior normal, Normal thought content General/Constitutional: Awake, Alert Distress / Hydration: Positive: Distress moderate Mouth: Positive: Mucous membranes dry Respiratory / Chest: Atraumatic, Breath sounds NL, Breath sounds = bilat, No respiratory distress Cardiovascular: Heart rate NL, Regular rhythm, Heart sounds NL Good radial pulses Abdomen: Atraumatic, Soft, Non-tender Lower Extremity / Pelvis / MS: Neurologic intact, Vascular intact No calf swelling or tenderness. Good cap refill. Good DP/PT pulses Skin: Color NL, No rash, Warm, Dry, Intact Interpretation & Diagnostics Lab Results Interpretation Test 01/11/17 13:20 Urine Color Yellow (YELLOW) Urine Appearance Clear (CLEAR,HAZY) Urine pH 8.0 (5.0-8.0) Urine Specific [place] 1.020 (1.003-1.035) Urine Protein Negativemg/dL (NEG,TRACE) Urine Glucose (UA) Negativemg/dL (NEGATIVE) Urine Ketones 40mg/dL (NEGATIVE) Urine Occult Blood Negative (NEGATIVE) Urine Nitrite Negative (NEGATIVE) Urine Bilirubin Negative (NEGATIVE) Urine Urobilinogen Normalmg/dL (NORMAL) Urine Leukocyte Esterase Negative (NEGATIVE) Urine RBC 0-2/hpf (0-2) Urine WBC 0-5/hpf (0-5) Urine Epithelial Cells Few/hpf (NONE-MOD) Urine Crystals None seen (NONE SEEN) Urine Bacteria Few/hpf (NONE-FEW) Urine Hyaline Casts None/lpf (NONE) Urine Granular Casts None seen (NONE SEEN) Urine Waxy Casts None seen (NONE SEEN) Urine Red Blood Cell Casts None seen (NONE SEEN) Urine White Blood Cell Casts None seen (NONE SEEN) Urine Mucus None seen (None Seen) Urine Trichomonas None seen (NONE SEEN) Urine Yeast None (NONE SEEN) Urinalysis Comment None Urine Culture Reflexed Not indicated Re-Eval/Medical Decision Med Decision/Clinical Course In summary, the patient is a 21-year-old female, currently 6-8 weeks by LMP who presents to the emergency department complaining of nausea, vomiting and diarrhea. Upon arrival she is afebrile, hemodynamically stable and in no apparent distress. The patient received Zofran prior to arrival here she was treated with IV fluids and Reglan with improvement in her symptoms that she reported feeling ongoing nausea. She was subsequently treated with an additional liter of fluid as well as IV Benadryl with good effect and was thereafter able to tolerate by mouth fluids. She had recently been evaluated at urgent care laboratory studies as below: borderline leuk 10.3 hemat 43.7 electrolyes nL kidney fx w/in nL LFT w/in nL beta HCG 17524 Serial abdominal examinations remained benign without any palpable mass, tenderness, guarding or rebound. Here in the emergency Department I obtained urinalysis which showed no signs of UTI. There are no findings suggestive of an acute surgical intra-abdominal process. The patient is admitted vaginal bleeding suggestive of a threatened . She is nontoxic and afebrile and my suspicion for acute bacterial cause of her diarrhea is relatively low. Upon further discussions with the patient she reports very similar episodes of nausea and vomiting during her previous pregnancies and states that she has tried multiple medications with only moderate effect. At this time, she is now tolerating PO and would like to be discharged home. I feel that this is reasonable. She has been referred to [facility] for follow-up. Take Unisom and vitamin B6 and I have given her prescription for Zofran for breakthrough nausea and vomiting. Prior to discharge follow-up and return precautions were reviewed in detail with the patient who verbalized understanding and agreement with the plan. The patient was discharged in stable condition. Time of Eval: 14:28 Re-Evaluation/Progress Note: Discussed plan for discharge. Patient understands and agrees with plan. All questions addressed at this time. Counseled Regarding: Diagnosis, Need for follow-up, When/why to return to ED Discharge & Departure Primary Impression: Vomiting during Disposition: Home Discharge Condition All VS Reviewed: Yes Condition: Improved Additional Instructions: Thank you for seeking care at the emergency room. It is difficult for us to make definitive diagnoses in the ED but we believe that you are experiencing nausea and vomiting due to . Our primary goal today in the ED was to evaluate you for any life-threatening conditions. Your evaluation was reassuring. You will be discharged with a prescription for doxylamine, this can help with nausea and vomiting in but can also make you drowsy.. You should follow-up with your obgyn doctor in the next week. You should return to the ED immediately if you develop worsening symptoms, inability to keep down fluids, vaginal bleeding, fevers, vomiting, cough, shortness of breath, chest pain, lightheadedness, weakness or any other concerning signs or symptoms. Thank you for letting us partake in your care today. Referrals: [facility] (PCP) [facility] Attestation Portions of this note were transcribed by Koby Morales. I, Dr. Rizo personally performed the history, physical exam and medical decision-making; I reviewed and confirmed the accuracy of the information in the transcribed note. Signed: Jeri Santos, 01/11/17 copies to: Leah Wyatt Beck O MD Jan 11, 2017 12:59 KOBY MORALES Jan 11, 2017 13:53
[2017-01-11] MEDS ORDERED: MetoCLOpramide 5 mg/mL 2 mL Inj IVPUSH PRN (13:45)
[2017-01-11 13:49] LABS: APPEARANCE,URINE CLEAR (CLEAR,HAZY); COLOR,URINE YELLOW (YELLOW); OCCULT BLOOD,URINE NEGATIVE (NEGATIVE); UROBILINOGEN,URINE NORMAL (NORMAL)
[2017-01-11] MEDS ORDERED: DOXY25TA46 PO (14:25)
[2017-01-11] MEDS ORDERED: PYR50 PO (14:25)
[2017-01-11] MEDS ORDERED: ONDA4TAB9 PO (15:06)
[2017-01-11 16:03] VITALS: BP 107/57; PULSE 69; RESP 16; O2SAT 99
== END 2017-01-11 16:04 | disposition home or self-care (01) ==
LOC: SED 12:30
DX: O21.8 Other vomiting complicating pregnancy (principal); O99.331 Smoking (tobacco) complicating pregnancy, first trimester; Z3A.01 Less than 8 weeks gestation of pregnancy
CPT/HCPCS: 81000; 81025; 96361; 96374; 96375; 99284; J1200; J2765; J7030

== ENCOUNTER 2017-01-16 18:42 | Emergency (ER) | payer OTHER ==
[~2017-01-16] VITALS: Ht 154.9 cm; Wt 79.1 kg
[~2017-01-16 18:42] MED LIST changes: +DOXY25TA46 PO; +ONDA4TAB9 PO; +PYR50 PO
[2017-01-16 18:47] VITALS: BP 114/72; PULSE 69; RESP 16; O2SAT 98
--- NOTE | 2017-01-16 19:12 | ED.REPORT ---
HPI-Preg Under 20 Weeks Date of Service Jan 16, 2017 ED Provider: Dr. Osman The pt is a 21 y/o 8 weeks female () with no pertinent hx who presents to the ED complaining of vomiting, onset 5 days ago. Associated sx include nausea, abdominal discomfort, malaise, generalized weakness and dizziness. The pt also reports vision change and states she is "seeing spots". She denies vaginal bleeding. Her last menstrual period was first week of November. Her first at-home positive test was last week. The pt was seen at the ED 6 days ago for the same complaint and was discharged with a prescription for doxylamine. Nursing Notes Stated Complaint: CHEST PAIN-SENT BY [facility] OFFICE Chief Complaint: Female Abdominal Pain Nursing Notes Reviewed: Yes Allergies: Coded Allergies: No Known Allergies (Unverified , 01/11/17) Scheduled ([Ascorbic Acid]) 500 MG TABLET 500 MG PO DAILYWM Docusate Sodium (Colace) 100 Mg Capsule 100 MG PO BID Ferrous Sulfate (Feosol) 325 Mg Tablet 325 MG PO DAILY Vit#96/Ferrous Fum/FA ( Tablet) 1 Each Tablet 1 EACH PO DAILY Pyridoxine (Vitamin B-6) 50 Mg Tablet 50 MG PO DAILY Scheduled PRN Doxylamine Succinate (Unisom) 25 Mg Tablet 25 MG PO DAILY PRN PRN For Nausea Ibuprofen (Ibuprofen) 800 Mg Tablet 800 MG PO Q6H PRN PRN For Pain Ondansetron ODT (Zofran ODT) 4 Mg Tablet 4 MG PO Q4H PRN PRN For Nausea Promethazine (Promethazine) 25 Mg Tablet 25 MG PO Q6H PRN PRN For Nausea Promethazine Supp (Promethazine Supp) 25 Mg Supp 25 MG RECTAL Q8H PRN PRN For Nausea/Vomiting oxyCODONE-Acetaminophen 5-325 mg (oxyCODONE-Acetaminophen 5-325 mg) 1 Each Tablet 1 TAB PO Q4-6H PRN PRN For Pain General Time Seen by Provider: 19:12 Chief Complaint Other (vomiting) Context: : Known 1st trim Hx Obtained From: Patient Arrived By: Walk-in Onset Occurred: 5 days ago Symptom Duration: Since onset Location: : Abdomen diffuse Quality: Painful Radiation: : None Severity: Current: Mild Severity: Maximum: Mild Past Medical History Past Medical History Hx of palpitations Reports hx of possible thick blood when she was a teenager Past Surgical History none reported Smoking History Current Every Day Smoker Social History Alcohol Use: Denies alcohol use Drug Use: Denies drug use Ambulatory Status Independent Review of Systems Constitutional: Reports: Malaise, Weakness - generalized GI: Reports: Abdominal pain, Nausea, Vomiting Female: Denies: Vaginal bleeding - abnl Neurologic: Reports: Dizziness, Vision change Complete sys rev & neg: except as marked. Physical Exam Initial Vital Signs Vital Signs (First) Date Time Temp Pulse Resp B/P Pulse Ox O2 Delivery O2 Flow Rate FiO2 01/16/17 18:47 37.1 69 16 114/72 98 01/17/17 00:17 Room Air Initial VS: Reviewed Head / Eyes: Atraumatic, Normocephalic Neck: Supple, Non-tender, Full range of motion Respiratory: Breath sounds normal, Clear to auscultation, No respiratory distress Cardiovascular: Regular rate & rhythm, Heart sounds normal, Intact distal pulses Extremities: Vascular intact, Neuro intact, No swelling, No tenderness Skin: Warm, Dry, No cyanosis Neurologic: Alert, Oriented, Nonfocal General/Constitutional: Awake, Alert, No acute distress, Well appearing, Cooperative Abdomen: Atraumatic, Soft, No guarding, No rebound Tenderness/Guarding/Rebound: Positive: Tender diffuse (mild) Female Genitourinary: Exam deferred : Exam deferred Interpretation & Diagnostics Lab Results Interpretation Result Diagram: 01/16/176 01/16/17 192 Test 01/16/17 19:26 01/16/17 21:24 01/16/17 22:06 White Blood Count 14.0th/mm3 (3.8-10.1) Red Blood Count 4.66mil/mm3 (3.90-5.20) Hemoglobin 13.3g/dL (12.0-15.6) Hematocrit 36.4% (35.0-46.0) Mean Corpuscular Volume 78.1fL (81-100) Mean Corpuscular Hemoglobin 28.5pg (27.0-35.0) Mean Corpuscular Hemoglobin Concent 36.5% (32.0-37.0) Red Cell Distribution Width 13.2% (12.3-15.4) Platelet Count 224bil/L (150-400) Neutrophils (%) (Auto) 81.9% (40-74) Lymphocytes (%) (Auto) 12.3% (14-46) Monocytes (%) (Auto) 5.3% (4-12) Eosinophils (%) (Auto) 0.1% (0-5) Basophils (%) (Auto) 0.1% (0-3) Sodium Level 136mEq/L (134-144) Potassium Level 3.0mEq/L (3.5-5.2) Chloride Level 104mEq/L (97-108) Carbon Dioxide Level 15mmol/L (18-29) Blood Urea Nitrogen 7mg/dL (6-20) Creatinine 0.43mg/dL (0.57-1.00) Estimat Glomerular Filtration Rate 263mL/min (>59) Glucose Level 83mg/dL (60-99) Calcium Level 8.1mg/dL (8.5-10.1) Magnesium Level 1.8mg/dL (1.6-2.6) Total Bilirubin 0.6mg/dL (0.0-1.2) Aspartate Amino Transf (AST/SGOT) 12U/L (0-50) Alanine Aminotransferase (ALT/SGPT) 34U/L (0-32) Alkaline Phosphatase 60U/L (25-150) Total Protein 6.2g/dL (6.4-8.4) Albumin 3.7g/dL (3.4-5.0) Lipase 15U/L (13-60) Hold Urine Received (Received) Urine Color Yellow (YELLOW) Urine Appearance Clear (CLEAR,HAZY) Urine pH 6.5 (5.0-8.0) Urine Specific [place] 1.020 (1.003-1.035) Urine Protein Negativemg/dL (NEG,TRACE) Urine Glucose (UA) Negativemg/dL (NEGATIVE) Urine Ketones >80mg/dL (NEGATIVE) Urine Occult Blood Negative (NEGATIVE) Urine Nitrite Negative (NEGATIVE) Urine Bilirubin Negative (NEGATIVE) Urine Urobilinogen Normalmg/dL (NORMAL) Urine Leukocyte Esterase Negative (NEGATIVE) Urine RBC 0-2/hpf (0-2) Urine WBC 0-5/hpf (0-5) Urine Epithelial Cells Moderate/hpf (NONE-MOD) Urine Crystals None seen (NONE SEEN) Urine Bacteria Few/hpf (NONE-FEW) Urine Hyaline Casts None/lpf (NONE) Urine Granular Casts None seen (NONE SEEN) Urine Waxy Casts None seen (NONE SEEN) Urine Red Blood Cell Casts None seen (NONE SEEN) Urine White Blood Cell Casts None seen (NONE SEEN) Urine Mucus None seen (None Seen) Urine Trichomonas None seen (NONE SEEN) Urine Yeast None (NONE SEEN) Urinalysis Comment None Urine Culture Reflexed Not indicated Re-Eval/Medical Decision Med Decision/Clinical Course 21-year-old female with a history of hyperemesis gravidarum presents with more of the same. She estimates that she is approximately 8 weeks . She is also complaining of some mild suprapubic pain, without vaginal bleeding. She is treated symptomatically with Zofran, Phenergan, and 3 total liters of fluid here for symptoms abated. I discharged her home with rectal Phenergan as well as by mouth Phenergan, as she states she R he has Zofran at home but the taste of it makes her sick. I advised her to get follow-up with her OB provider within the next week, even though she is only 8 weeks to get more help with her ongoing hyperemesis. She was seen here within the past week for the same. She was also treated for hypokalemia secondary to her vomiting. She did find significant relief from the GI cocktail and I advised that she take an acid josep medication to help with GERD symptoms during her . Bedside ultrasound confirms intrauterine with visible heartbeat. Re-Evaluation/Progress #1: Time of Eval: 21:57 Re-Evaluation/Progress Note: Rechecked pt. She is still experiencing some nausea. Her abdominal pain has worsened. Re-Evaluation/Progress #2: Time of Eval: 23:29 Patient Status: Condition improved Re-Evaluation/Progress Note: Rechecked pt. She reports relief. Bedside ultrasound shows heart beat. Discussed lab results, diagnosis and plan to discharge. Pt understands and agrees with the plan. F/U instruction and RTER warning given. All questions addressed Counseled Regarding: Diagnosis, Lab results, Need for follow-up, When/why to return to ED Discharge & Departure Primary Impression: Vomiting during Additional Impressions: Hypokalemia GERD (gastroesophageal reflux disease) Esophagitis presence: esophagitis presence not specified Qualified Code: K21.9 - Gastro-esophageal reflux disease without esophagitis Disposition: Home Discharge Condition All VS Reviewed: Yes Condition: Stable Patient Instructions: Nausea and Vomiting in (ED) Additional Instructions: Thank you for trusting us with your medical care. You were treated with potassium, a GI cocktail, Protonix, and 3 L of saline here as well as Zofran and promethazine. Your bedside ultrasound shows an intrauterine with a heartbeat. Continue to use Zofran or the promethazine prescribed today for nausea. You may also take an [id number] acid josep medication such as Zantac to help with your stomach pain/reflux Contact women's health for an appointment and let them know that you have had 2 visits in the ER and urgent care for nausea and vomiting in early Return to the ER for new or worsening symptoms. Referrals: Amber Gra MD, Jhoanna M MD Scribe Attestation Portions of this note were transcribed by Jennifer Reina. I,, personally performed the history,physical exam and medical decision-making;I reviewed and confirmed the accuracy of the information in the transcribed note. Signed by Jeri Ortega. 01/16/17 copies to: Amber Gar MD; Oly Cortez MD, Gary R DO Jan 16, 2017 19:12 Jennifer Reina Jan 16, 2017 19:32
[2017-01-16 19:30] LABS: BASOPHILS % (AUTO) 0.1 % (0-3); EOSINOPHILS % (AUTO) 0.1 % (0-5); MONOCYTES % (AUTO) 5.3 % (4-12); Mean Corpuscular Hemoglobin 28.5 pg (27.0-35.0); Mean Corpuscular Volume 78.1 fL (81-100); NEUTROPHILS % (AUTO) 81.9 % (40-74); Platelet Count 224 bil/L (150-400)
[2017-01-16] MEDS ORDERED: 0.9% Sodium Chloride 1,000 ML IV ONE (19:30)
[2017-01-16] MEDS: Ondansetron 2 mg/mL 2 mL Inj IVPUSH PRN ×2 (19:43→23:10)
[2017-01-16 19:53] LABS: Magnesium 1.8 mg/dL (1.6-2.6)
[2017-01-16] MEDS ORDERED: Potassium Chloride 20 mEq SR Tablet PO ONE (21:40)
[2017-01-16] MEDS ORDERED: Promethazine 25 mg/mL Inj IM ONE (22:00)
[2017-01-16] MEDS ORDERED: LidocaineVisc 2%:Antacid 1:1 10 mL Syringe PO ONE (22:00)
[2017-01-16] MEDS ORDERED: Pantoprazole 40 mg ER24 Tablet PO ONE (22:00)
[2017-01-16 22:11] LABS: APPEARANCE,URINE CLEAR (CLEAR,HAZY); COLOR,URINE YELLOW (YELLOW); PH,URINE 6.5 (5.0-8.0)
[2017-01-16 22:12] LABS: OCCULT BLOOD,URINE NEGATIVE (NEGATIVE); UROBILINOGEN,URINE NORMAL (NORMAL)
[2017-01-16] MEDS ORDERED: PROM25TA14 PO (23:59)
[2017-01-16] MEDS ORDERED: PROM25SU47 RECTAL (23:59)
[2017-01-17 00:17] VITALS: BP 108/52; PULSE 62; O2SAT 98
== END 2017-01-17 00:20 | disposition home or self-care (01) ==
LOC: SED 18:42
DX: O21.1 Hyperemesis gravidarum with metabolic disturbance (principal); O99.611 Diseases of the digestive system complicating pregnancy, first trimester; O99.281 Endocrine, nutritional and metabolic diseases complicating pregnancy, first trimester; K21.9 Gastro-esophageal reflux disease without esophagitis; E87.6 Hypokalemia; O99.331 Smoking (tobacco) complicating pregnancy, first trimester; Z3A.08 8 weeks gestation of pregnancy
CPT/HCPCS: 36415; 80053; 81000; 81025; 83690; 83735; 85025; 96361; 96372; 96374; 96376; 99285; A4300; G0463; J2405; J2550; J7030

== ENCOUNTER 2017-01-20 11:54 | Inpatient (IN) | payer OTHER ==
[~2017-01-20] VITALS: Ht 154.9 cm; Wt 71.7 kg
[~2017-01-20 11:54] MED LIST changes: +PROM25SU47 RECTAL; +PROM25TA14 PO
[2017-01-20 11:59] VITALS: BP 122/85; PULSE 73; RESP 15; O2SAT 97
--- NOTE | 2017-01-20 12:10 | ED.REPORT ---
HPI-General Illness Date of Service Jan 20, 2017 ED Provider: Kevin Hebert MD Patient is a 21 year old female who is 8-9 weeks gestation and presents to the ED from complaining of progressively worsening nausea and vomiting onset a week and a half ago. Associated symptoms include clear diarrhea and decreased intake. She denies vaginal bleeding, abdominal pain, fevers, chills, cough, chest pain, SOB, headache, rash, itch, bleeding, back pain, or any other symptoms. Patient has been seen twice previously in the last week and a half in the department for the same symptoms. This is similar to vomiting in a previous but slightly more severe. She was prescribe Unisom and vitamin B6 recently with minimal relief. Nursing Notes Stated Complaint: VOMITING Chief Complaint: Female Abdominal Pain Nursing Notes Reviewed: Yes Allergies: Coded Allergies: No Known Allergies (Unverified , 01/20/17) Scheduled ([Ascorbic Acid]) 500 MG TABLET 500 MG PO DAILYWM Docusate Sodium (Colace) 100 Mg Capsule 100 MG PO BID Ferrous Sulfate (Feosol) 325 Mg Tablet 325 MG PO DAILY Vit#96/Ferrous Fum/FA ( Tablet) 1 Each Tablet 1 EACH PO DAILY Pyridoxine (Vitamin B-6) 50 Mg Tablet 50 MG PO DAILY Scheduled PRN Doxylamine Succinate (Unisom) 25 Mg Tablet 25 MG PO DAILY PRN PRN For Nausea Ibuprofen (Ibuprofen) 800 Mg Tablet 800 MG PO Q6H PRN PRN For Pain Ondansetron ODT (Zofran ODT) 4 Mg Tablet 4 MG PO Q4H PRN PRN For Nausea Promethazine (Promethazine) 25 Mg Tablet 25 MG PO Q6H PRN PRN For Nausea Promethazine Supp (Promethazine Supp) 25 Mg Supp 25 MG RECTAL Q8H PRN PRN For Nausea/Vomiting oxyCODONE-Acetaminophen 5-325 mg (oxyCODONE-Acetaminophen 5-325 mg) 1 Each Tablet 1 TAB PO Q4-6H PRN PRN For Pain General Time Seen by MD: 12:06 Chief Complaint Vomiting Hx Obtained From: Patient Arrived By: Walk-in Sudden in Onset?: No Onset Occurred: 1 week ago Symptom Duration: Since onset Severity: Current: No pain currently Severity: Maximum: No pain Additional Notes: diarrhea Pertinent Negative: Pt denies other symptoms Exacerbated by: Drinking, Eating Pertinent Negative: Relieved by nothing Context Related History: Denies Diabetes mellitus Recent Healthcare: Recent doctor visit Similar Sx Previous: Yes Past Medical History Past Medical History Hx of palpitations Reports hx of possible thick blood when she was a teenager Past Surgical History none reported Smoking History Current Every Day Smoker Social History Alcohol Use: Denies alcohol use Drug Use: Denies drug use Ambulatory Status Independent Review of Systems +decreased intake Full Review of Systems Constitutional: Denies: Chills, Fever Respiratory: Denies: Non-productive cough, Shortness of breath Cardiovascular: Denies: Chest pain GI: Reports: Diarrhea, Nausea, Vomiting, Denies: Abdominal pain Female: Denies: Vaginal bleeding - abnl Musculoskeletal: Denies: Back pain Hematologic: Denies Bleeding Skin: Denies Rash Allergy / Immune: Denies: Itching Neurologic: Denies: Headache Complete sys rev & neg: except as marked. Physical Exam Nursing note and vitals reviewed. Vitals grossly w/in nL limits. Constitutional: Well-developed, well-nourished. Not diaphoretic. Head: Normocephalic and atraumatic. Mouth/Throat: Oropharynx is clear but mildly dry. No oropharyngeal exudate. Eyes: EOM are normal. Pupils are equal, round, and reactive to light. Neck: Supple, no tracheal deviation. Cardiovascular: Normal rate, regular rhythm. Equal and intact distal pulses throughout. Pulmonary/Chest: Effort normal and breath sounds normal. No respiratory distress. Abdominal: Soft. No distension. Mild RUQ tenderness. No rebound, or guarding. No point tenderness to lower abdomen. Musculoskeletal: Range of motion grossly intact, moving all extremities. No edema or tenderness appreciated. Neurological: AOx3. Grossly nonfocal exam. Strength and sensation intact and equal to bilateral upper and lower extremities. Skin: Warm and dry, no rashes or pallor appreciated. Psychiatric: Appropriate mood and affect. Behavior appears normal. Vital Signs Vital Signs Date Time Temp Pulse Resp B/P Pulse Ox O2 Delivery O2 Flow Rate FiO2 01/20/17 15:09 36.6 70 20 124/70 98 Room Air 01/20/17 11:59 36.8 73 15 122/85 97 Room Air Interpretation & Diagnostics Lab Results Interpretation Result Diagram: 01/20/17 1224 01/20/17 1224 Test 01/20/17 12:24 9/4/17 16:22 White Blood Count 13.1th/mm3 (3.8-10.1) Red Blood Count 5.47mil/mm3 (3.90-5.20) Hemoglobin 15.5g/dL (12.0-15.6) Hematocrit 41.9% (35.0-46.0) Mean Corpuscular Volume 76.6fL (81-100) Mean Corpuscular Hemoglobin 28.3pg (27.0-35.0) Mean Corpuscular Hemoglobin Concent 37.0% (32.0-37.0) Red Cell Distribution Width 13.9% (12.3-15.4) Platelet Count 283bil/L (150-400) Neutrophils (%) (Auto) 73.4% (40-74) Lymphocytes (%) (Auto) 17.6% (14-46) Monocytes (%) (Auto) 8.5% (4-12) Eosinophils (%) (Auto) 0.1% (0-5) Basophils (%) (Auto) 0.1% (0-3) Sodium Level 136mEq/L (134-144) Potassium Level 3.1mEq/L (3.5-5.2) Chloride Level 97mEq/L (97-108) Carbon Dioxide Level 18mmol/L (18-29) Blood Urea Nitrogen 9mg/dL (6-20) Creatinine 0.46mg/dL (0.57-1.00) Estimat Glomerular Filtration Rate 243mL/min (>59) Glucose Level 100mg/dL (60-99) Calcium Level 9.9mg/dL (8.5-10.1) Magnesium Level 1.9mg/dL (1.6-2.6) Total Bilirubin 1.4mg/dL (0.0-1.2) Aspartate Amino Transf (AST/SGOT) 81U/L (0-50) Alanine Aminotransferase (ALT/SGPT) 158U/L (0-32) Alkaline Phosphatase 77U/L (25-150) Total Protein 7.6g/dL (6.4-8.4) Albumin 4.6g/dL (3.4-5.0) Lipase 17U/L (13-60) HCG Beta Subunit [id number]/mL Hold Garcia Top Tube Received (Received) Lab Results Interpretation: US ABDOMINAL: 7 weeks 3 days fine no free fluid no gallstones sludge via neoplasm in gallbladder Re-Eval/Medical Decision Med Decision/Clinical Course In summary, 21-year-old female at approximately 8-10 weeks gestation presenting to the ED for evaluation of persistent nausea, vomiting, and diarrhea. She has been seen in the ED multiple times recently for this. Patient given IV fluids, benadryl and Reglan shortly after arrival. She has no abdominal tenderness of note on examination, and my suspicion for an acute surgical intra-abdominal process is very low. She has had similar symptoms previously. She has been taking Unisom and vitamin B6 with some relief. Upon reassessment, patient continues to have marked nausea and vomiting. Laboratory studies here reviewed, notable for a white blood cell count of 13.1, potassium of 3.1 (magnesium 1.9, K repleted in ED.) Beta hCG of [id number]. Lipase within normal limits. Most notably, compared to her laboratory studies several days ago, her LFTs have increased significantly - bilirubin 1.4 from 0.6 , AST 81 from 12, ALT 158 from 34. She had a limited bedside ultrasound during her ED last visit that demonstrated an intrauterine . A formal pelvic ultrasound was ordered today and shows an intrauterine with an estimated gestational age of 7 weeks and 3 days, no free fluid, no gallstones, however there was some sludge versus neoplasm in the gallbladder. I discussed this, as well as the patient's laboratory studies, with Dr. Mckee as per below. He does not feel like this needs advanced imaging such as a CT scan at this time. Given the above, plan admission for further management and evaluation. Patient agreeable to the plan as stated, no further questions. Time of Eval: 14:24 Re-Evaluation/Progress Note: Discussed plan for admission. Patient understands and agrees with plan. All questions addressed at this time. Consultation #1: Referral / Consult Name: Mara Rodriguez MD Call Returned at: 13:50 Note: Discussed pt's case. Symptoms unlikely related to due to diarrhea. Consultation #2: Referral / Consult Name: Wilfred Mckee MD Consulted With: Surgeon Call Returned at: 15:43 [place]: Agrees with eval, Agrees with plan Note: Discussed pt's case. No imaging. Neoplasm not likely. Will consult if needed. Consultation #3: Consulted With: Hospitalist Dollyman: Agrees with eval, Agrees with plan, Accepts admit Note: Dr. Hauser agrees w/ plan for admission. Counseled Regarding: Diagnosis, Lab results, Need for admission Discharge & Departure Primary Impression: Hyperemesis gravidarum Additional Impression: Transaminitis Disposition: ADMITTED TO HOSPITAL Discharge Condition All VS Reviewed: Yes Condition: Stable Referrals: NOPCP (PCP) Cameronibe Attestation Portions of this note were transcribed by Koby Morales. I, Dr. Hebert personally performed the history, physical exam and medical decision-making; I reviewed and confirmed the accuracy of the information in the transcribed note. Signed by: Jeri Santos, 01/20/17 Kevin Hebert MD Jan 20, 2017 12:10 Giuseppe Leone Jan 20, 2017 13:40 KOBY MORALES Jan 20, 2017 14:26
[2017-01-20 12:46] LABS: BASOPHILS % (AUTO) 0.1 % (0-3); EOSINOPHILS % (AUTO) 0.1 % (0-5); MONOCYTES % (AUTO) 8.5 % (4-12); Mean Corpuscular Hemoglobin 28.3 pg (27.0-35.0); Mean Corpuscular Volume 76.6 fL (81-100); NEUTROPHILS % (AUTO) 73.4 % (40-74); Platelet Count 283 bil/L (150-400)
[2017-01-20] MEDS ORDERED: 0.9% Sodium Chloride 1,000 ML IV SCH (13:10)
[2017-01-20] MEDS ORDERED: MetoCLOpramide 5 mg/mL 2 mL Inj IVPUSH PRN (13:10)
[2017-01-20] MEDS ORDERED: KCl 40 mEq/D5W 500 mL 40 MEQ in IV Premix 1 EACH IV ONE (13:45)
[2017-01-20 15:09] VITALS: BP 124/70; PULSE 70; RESP 20; O2SAT 98
[2017-01-20] MEDS ORDERED: Ondansetron 2 mg/mL 2 mL Inj IVPUSH ONE (16:15)
[2017-01-20] MEDS ORDERED: DIME25TA2 PO (16:48)
[2017-01-20] MEDS ORDERED: PREN-56 PO (16:49)
[2017-01-20] MEDS ORDERED: POTA10TA12 PO (16:49)
[2017-01-20 16:53] LABS: COLOR,URINE DARK YELLOW (YELLOW)
[2017-01-20 16:54] LABS: PH,URINE 6.5 (5.0-8.0)
--- NOTE | 2017-01-20 16:54 | PCM.HPMED ---
Subjective Date of Service Jan 20, 2017 Primary Provider: Admitting Physician: Michael Hauser MD Primary Care Physician: Roopa Attending Physician: Michael Hauser MD Admit Status: From the Emergency Department, Admit to Red Team Chief Complaint: Intractable Nausea History of Present Illness: Patient is a 21 year old female h/o of palpitations, currently 8-9 weeks gestation, 2 previous visits for nausea in ED this week and presenting again to the ED from urgent care with worsening nausea with emesis for 1.5 weeks. Pt has had decreased PO intake over last few days. She does endorse some loose BM's. She was prescribe Unisom and vitamin B6 recently with minimal relief. She denies vaginal bleeding, abdominal pain, fevers, chills, cough, chest pain, SOB, headache, rash, itch, bleeding, back pain, or any other symptoms. Pt says her past did involve nausea but not to this extreme. Per ED note- Patient given IV fluids, benadryl and Reglan shortly after arrival. She has no abdominal tenderness of note on examination, and my suspicion for an acute surgical intra-abdominal process is very low. She has had similar symptoms previously. She has been taking Unisom and vitamin B6 with some relief. Upon reassessment, patient continues to have marked nausea and vomiting. Laboratory studies here reviewed, notable for a white blood cell count of 13.1, potassium of 3.1 (magnesium 1.9, K repleted in ED.) Beta hCG of 304792. Lipase within normal limits. Most notably, compared to her laboratory studies several days ago, her LFTs have increased significantly - bilirubin 1.4 from 0.6 , AST 81 from 12, ALT 158 from 34. She had a limited bedside ultrasound during her ED last visit that demonstrated an intrauterine . A formal pelvic ultrasound was ordered today and shows an intrauterine with an estimated gestational age of 7 weeks and 3 days, no free fluid, no gallstones, however there was some sludge versus neoplasm in the gallbladder. I discussed this, as well as the patient's laboratory studies, with Dr. Mckee as per below. He does not feel like this needs advanced imaging such as a CT scan at this time. Review of Systems: 12 point ROS negative except that in HPI. Allergies Coded Allergies: No Known Allergies (Unverified , 9/4/17) Home Medications Scheduled ([Ascorbic Acid]) 500 MG TABLET 500 MG PO DAILYWM Docusate Sodium (Colace) 100 Mg Capsule 100 MG PO BID Ferrous Sulfate (Feosol) 325 Mg Tablet 325 MG PO DAILY Vit#96/Ferrous Fum/FA ( Tablet) 1 Each Tablet 1 EACH PO DAILY Pyridoxine (Vitamin B-6) 50 Mg Tablet 50 MG PO DAILY Scheduled PRN Doxylamine Succinate (Unisom) 25 Mg Tablet 25 MG PO DAILY PRN PRN For Nausea Ibuprofen (Ibuprofen) 800 Mg Tablet 800 MG PO Q6H PRN PRN For Pain Ondansetron ODT (Zofran ODT) 4 Mg Tablet 4 MG PO Q4H PRN PRN For Nausea Promethazine (Promethazine) 25 Mg Tablet 25 MG PO Q6H PRN PRN For Nausea Promethazine Supp (Promethazine Supp) 25 Mg Supp 25 MG RECTAL Q8H PRN PRN For Nausea/Vomiting oxyCODONE-Acetaminophen 5-325 mg (oxyCODONE-Acetaminophen 5-325 mg) 1 Each Tablet 1 TAB PO Q4-6H PRN PRN For Pain PMH h/o of palpitations, daily smoker, currently 8-9 weeks gestation Last - 2016. Surgical History Denies Family History No known cardiac history Social History Hx Alcohol Use: No Hx Substance Use: No Hx Tobacco Use: Yes Smoking Status: Current Every Day Smoker Exam Vital Signs Vital Sign - Last Date Time Temp Pulse Resp B/P Pulse Ox O2 Delivery O2 Flow Rate FiO2 01/20/17 15:09 36.6 70 20 124/70 98 Room Air Exam Nursing note and vitals reviewed. Vitals grossly w/in nL limits. Constitutional: Well-developed, well-nourished. Not diaphoretic. Head: Normocephalic and atraumatic. Mouth/Throat: Oropharynx is clear but mildly dry. No oropharyngeal exudate. Eyes: EOM are normal. Pupils are equal, round, and reactive to light. Neck: Supple, no tracheal deviation. Cardiovascular: Normal rate, regular rhythm. Equal and intact distal pulses throughout. Pulmonary/Chest: Effort normal and breath sounds normal. No respiratory distress. Abdominal: Soft. No distension. Mild RUQ tenderness. No rebound, or guarding. No point tenderness to lower abdomen. Musculoskeletal: Range of motion grossly intact, moving all extremities. No edema or tenderness appreciated. Neurological: AOx3. Grossly nonfocal exam. Strength and sensation intact and equal to bilateral upper and lower extremities. Skin: Warm and dry, no rashes or pallor appreciated. Psychiatric: Appropriate mood and affect. Behavior appears normal. Lab and Diagnostics Result Diagram: 01/20/17 1224 01/20/17 1224 Assessment & Plan Patient is a 21 year old female h/o of palpitations, daily smoker, currently 8 -9 weeks gestation, 2 previous visits for nausea in ED this week and presenting again to the ED from urgent care with worsening nausea with emesis for 1.5 weeks. Pt has had decreased PO intake over last few days found to have transaminitis. Intractable nausea with emesis- poa, active- may be due to Hyperemesis . Infection less likey, consider gastroenteritis or colitis given diarrhea. Pt does have Ketonuria which is consistent with Hyperemesis . Repeat UA, f/u Urine Cx. No signif abd tenderness. Unlikely acute abd. Lipase not elevated. Continue with IVF. OB contacted by ED, do not believe OB issues given short gestational age of 8-9 weeks. Reglan, Promethazine PRN. Benadryl prn. Steroids would be last resort. Can resume po antiemetics once tolerates. Replete electrolytes prn. Transaminitis- POA, active May be due to dehydration. Vs prior labs, LFTs have increased significantly - bilirubin 1.4 from 0.6, AST 81 from 12, ALT 158 from 34. pelvic ultrasound was ordered today and shows an intrauterine with an estimated gestational age of 7 weeks and 3 days, no free fluid, no gallstones , however there was some sludge versus neoplasm in the gallbladder. ED discussed with manager corporate communications Surgeon, Dr. Mckee who does not feel like this needs advanced imaging such as a CT scan at this time. Leukocytosis- poa, active- likely reactive, consider infection. If febrile culture and consider antibiotics. Repeat CBC in AM. Hypokalemia- acute, active- Likely due to nausea. Replete prn. - chronic, active. Beta hCG of [id number]. 8-9 weeks gestation, Avoid Fetotoxic meds. Smoker- chronic, active. Smoking cessation advised. Acetaminophen for mild pain when necessary. Bowel regimen Senna and MiraLAX scheduled and PRN. Reglan when necessary for nausea and vomiting. Code- Full Status- Patient is admitted under observation status expected length of stay less than 2 midnights due to severity of presenting symptoms, risk of adverse events, and complexity of treatment plan. Pain Evaluation: Adequate Pain Control GI Prophylaxis: Proton Pump Inhibitor VTE Mechanical Devices: Intermittant Pneumatic CD Resuscitation Status: CPR: Attempt Resuscitation Michael Hauser MD Jan 20, 2017 16:53
[2017-01-20 16:55] LABS: APPEARANCE,URINE HAZY (CLEAR,HAZY); OCCULT BLOOD,URINE NEGATIVE (NEGATIVE)
[2017-01-20 16:56] LABS: ICTOTEST,URINE POSITIVE (Negative)
[2017-01-20] MEDS ORDERED: Promethazine 25 mg/mL Inj IM PRN (17:20)
--- NOTE | 2017-01-20 17:30 | DRSVH ---
PROCEDURE: US ABDOMEN ([id number]) INDICATIONS: NAUSEA, VOMITING POSITIVE PREG TECHNIQUE: Real-time scanning was performed of the abdominal and retroperitoneal organs, with image documentatio n. COMPARISON: None. FINDINGS: Liver: Liver is normal in size and homogeneous in echotexture. Gallbladder: The gallbladder is mildly distended with multiple heterogeneous intraluminal contents hernandez ggestive of biliary sludge. However, no layering or motion was visualized. No internal vascularity o n color Doppler interrogation. No gallbladder wall thickening or pericholecystic fluid. Biliary ducts: Intrahepatic bile ducts are non-dilated. Extrahepatic bile duct caliber measures 4-5 mm. Normal is 6-7 mm or less in diameter, or 10 mm or less post-cholecystectomy. Pancreas: Visualized portions of the pancreas are sonographically normal. Spleen: Spleen is normal in size and homogeneous in echotexture. Kidneys: Right kidney measures 10.1 cm long; left kidney measures 11.2 cm long. No hydronephrosis. Aorta: Visualized aorta is normal in caliber at less than 3 cm. Iliacs: Proximal common iliac arteries are normal in caliber at less than 2.5 cm. IVC: Intrahepatic inferior vena cava is patent. Miscellaneous: No free abdominal fluid. IMPRESSION: 1. Heterogeneous gallbladder contents suggestive of biliary sludge. The differential includes a mas s but no internal vascularity is demonstrated on color Doppler interrogation. 2. No gallbladder wall thickening or pericholecystic fluid. Dictated by: Paul Dillon M.D. on 01/20/2017 at 17:25 Approved by: Paul Dillon M.D. on 01/20/2017 at 17:29
--- NOTE | 2017-01-20 17:41 | DRSVH ---
PROCEDURE: US OB<14 WKS INDICATIONS: persistent n/v/d, preg. Eval IUP, appy, other abnl OUTSIDE/PRIOR DATING DATA: Last menstrual period (LMP): 11/20/16. LMP-based estimated date of delivery (JANENE): 08/27/17. First dating scan (date and location): 01/20/17. Estimated date of delivery (JANENE) from first dating scan: 09/05/17. TECHNIQUE: Real-time scanning was performed of the fetus and maternal pelvic organs, with image documentation. COMPARISON: None. FINDINGS: Embryo: There is a single intrauterine with a gestational sac, yolk sac, or pole visu alized. The crown rump length measures up to 1.2 cm corresponding to a gestational age of 7 weeks 3 days. No nica-gestational hematomas identified. Measurement variability in dating: +/- 4 weeks by LMP, +/- 7 days by mean sac diameter (use before 6 weeks gestation if crown-rump length not able to be measured), +/- 5 days by crown-rump length (up t o 8 weeks 6 days gestation), +/- 7 days by crown-rump length (up to 13 weeks 6 days gestation). Maternal organs: Ovaries the ovaries appear within normal size limits. No adnexal masses. IMPRESSION: 1. Single living intrauterine with calculated gestational age of 7 weeks 3 days correspond ing to an estimated delivery date of 09/05/17. The findings are slightly discordant with patient's es timated delivery date by LMP of 08/27/17. Dictated by: Paul Dillon M.D. on 01/20/2017 at 17:32 Approved by: Paul Dillon M.D. on 01/20/2017 at 17:39
--- NOTE | 2017-01-20 17:43 | DRSVH ---
PROCEDURE: US APPENDIX INDICATIONS: NAUSEA, VOMITING POSITIVE PREG, RLQ PAIN TECHNIQUE: Real-time focused scanning was performed of the abdomen with attention to the appendix, with image do cumentation. COMPARISON: None. FINDINGS: The appendix was not visualized in the right lower quadrant. No free fluid identified. There is a distended gallbladder with heterogeneous filling defects likely representing biliary sludg e. A small right paraovarian cyst is noted measuring up to 1.4 cm. IMPRESSION: 1. Appendix not identified sonographically. 2. No free fluid in the right lower quadrant. 3. Distended gallbladder with heterogeneous filling defects likely representing biliary sludge. A m ass lesion is less likely. 4. Small right paraovarian cyst. Dictated by: Paul Dillon M.D. on 01/20/2017 at 17:39 Approved by: Paul Dillon M.D. on 01/20/2017 at 17:41
--- NOTE | 2017-01-20 17:59 | NUR ---
MOC Admit: Received patient via wheelchair accompanied by ER staff, IVF patent and infusing well. Alert, oriented and conversant. Pain level of 3/10 at this time. Nausea still present. Patient oriented to room and unit. Seen and examined by Dr. Hauser admitting hospitalist. May have diet as tolerated, patient has no food intake for the last week and a half as reported. Will encourage intake as she can tolerate. Will continue to monitor.
[2017-01-20 18:30] VITALS: BP 112/68; PULSE 78; RESP 18; O2SAT 100
[2017-01-20] MEDS: Promethazine Inj 25 MG in 0.9% Sodium Chloride 50 ML IV PRN (20:40)
[2017-01-20] MEDS: 0.9% Sodium Chloride 1,000 ML IV SCH (22:49)
[2017-01-21 02:17] VITALS: BP 125/66; PULSE 57; RESP 16; O2SAT 96
[2017-01-21 06:04] VITALS: BP 112/63; PULSE 63; RESP 16; O2SAT 93
--- NOTE | 2017-01-21 06:27 | NUR ---
NAUSEA/N.O Pt. c/o nausea, given zofran p.o with low effect, administered Promethazine IV, reports a good relief, Pt. given new order of IVF NS at 100 mls/hr, Infusing well, no emesis noted at this time, hourly checks, uses call light appropriately, hourly rounds, will continue to monitor.
[2017-01-21] MEDS: Promethazine Inj 25 MG in 0.9% Sodium Chloride 50 ML IV PRN ×3 (06:36→20:10)
[2017-01-21 07:18] LABS: BASOPHILS % (AUTO) 0.2 % (0-3); MONOCYTES % (AUTO) 10.6 % (4-12); Mean Corpuscular Hemoglobin 28.4 pg (27.0-35.0); Mean Corpuscular Volume 79.1 fL (81-100); NEUTROPHILS % (AUTO) 57.6 % (40-74); Platelet Count 197 bil/L (150-400)
[2017-01-21 07:42] LABS: Bilirubin, Direct 0.5 mg/dL (0.0-0.3)
--- NOTE | 2017-01-21 08:01 | PCM.PNOBIP ---
Subjective Date of Service Jan 21, 2017 Visit History Patient is a 21 year old female currently 8-9 weeks gestation, 2 previous visits for nausea in ED this week and presenting again to the ED from urgent care with worsening nausea with emesis for 1.5 weeks. Pt has had decreased PO intake over last few days. She did have some loose BM's, currently no Bm in past 24 hours. She was prescribe Unisom and vitamin B6 recently with minimal relief. She denies vaginal bleeding, abdominal pain, fevers, chills, cough, chest pain, SOB, headache, rash, itch, bleeding, back pain, or any other symptoms. Pt says her past did involve nausea but not to this extreme. Per ED note- Patient given IV fluids, benadryl and Reglan shortly after arrival. She has no abdominal tenderness of note on examination, and my suspicion for an acute surgical intra-abdominal process is very low. She has had similar symptoms previously. She has been taking Unisom and vitamin B6 with some relief. Upon reassessment, patient continues to have marked nausea and vomiting. Laboratory studies here reviewed, notable for a white blood cell count of 13.1, potassium of 3.1 (magnesium 1.9, K repleted in ED.) Beta hCG of 706457. Lipase within normal limits. Most notably, compared to her laboratory studies several days ago, her LFTs have increased significantly - bilirubin 1.4 from 0.6 , AST 81 from 12, ALT 158 from 34. She had a limited bedside ultrasound during her ED last visit that demonstrated an intrauterine . A formal pelvic ultrasound was ordered today and shows an intrauterine with an estimated gestational age of 7 weeks and 3 days, no free fluid, no gallstones, however there was some sludge versus neoplasm in the gallbladder. I discussed this, as well as the patient's laboratory studies, with Dr. Mckee as per below. He does not feel like this needs advanced imaging such as a CT scan at this time. Labs Laboratory Tests 01/21/17 07:05: White Blood Count 9.6, Red Blood Count 4.68, Hemoglobin 13.3, Hematocrit 37.0, Mean Corpuscular Volume 79.1, Mean Corpuscular Hemoglobin 28.4, Mean Corpuscular Hemoglobin Concent 35.9, Red Cell Distribution Width 14.0, Platelet Count 197, Neutrophils (%) (Auto) 57.6, Lymphocytes (%) (Auto) 30.1, Monocytes ( %) (Auto) 10.6, Eosinophils (%) (Auto) 1.0, Basophils (%) (Auto) 0.2 Exam Vital Signs Vital Signs Vital Signs Date Time Temp Pulse Resp B/P Pulse Ox O2 Delivery O2 Flow Rate FiO2 01/21/17 06:04 37.1 63 16 112/63 93 Room Air 01/21/17 02:17 37.1 57 16 125/66 96 Room Air Vital Signs: VS reviewed, stable Heart Tracings Heart Tones Baseline N/A Tocometry/IUPC Contraction frequency in minutes: MVUs: Exam Abdomen: Abdomen soft, Abdomen non-tender, Abdomen appropriately tender Extremities: No cords, Normal pulses, No tenderness/swelling, No edema Lungs: Clear to Auscultation, Clear to Percussion, Normal Air Movement Heart: Regular Rate/Rhythm, Normal S1, Normal S2, No Murmurs/Rubs/Gallops General: Alert, Oriented X3, Cooperative, No Acute Distress OB Intrapartum Assessment/Plan Assessment Patient is a 21 year old female currently 8-9 weeks gestation, admitted for nausea and vomiting during . Agree with medical plan. Continue current medical therapy. No changes to treatment at this time. We will continue follow this patient closely Thank you for allowing us to participate in this patient's care. Pain Evaluation: Adequate Pain Control VTE Mechanical Devices: Intermittant Pneumatic CD Attending Statement Medications reviewed. Patient still actively vomiting as per RN. Added oral medication PRN. If still actively vomiting will use IV medications and transition to oral medications when N//V is well controlled with IV medications. Karly Perla MD The patient was seen and examined together with Dr. Cezar Villar on 01/21/2017 and I agree with the history, exam and plan as outlined in the note above. CEZAR VILLAR DO Jan 21, 2017 08:01 Karly Perla MD Jan 21, 2017 18:09 Amber Gar MD Jan 24, 2017 10:20
[2017-01-21] MEDS ORDERED: Potassium Chloride Inj 30 MEQ in Dextrose 5% 500 ML IV ONE (08:55)
[2017-01-21] MEDS: Multivit-Miner-Folic Acid-Iron Tablet PO SCH (09:25)
[2017-01-21] MEDS: 0.9% Sodium Chloride 1,000 ML IV SCH (09:25)
[2017-01-21 12:37] VITALS: BP 129/81; PULSE 75; RESP 16; O2SAT 99
[2017-01-21] MEDS ORDERED: Alum-Mag Hydrox-Simeth 30 mL Suspension PO PRN (13:05)
[2017-01-21] MEDS: Lactated Ringer's 1,000 ML IV SCH ×2 (13:10→23:14)
[2017-01-21] MEDS: MetoCLOpramide 5 mg/mL 2 mL Inj IVPUSH PRN (13:10)
--- NOTE | 2017-01-21 13:12 | PCM.PNMED ---
Subjective Date of Service Jan 21, 2017 Subjective Pt still very nauseous overnight. Has been attempting a po diet this morning. Exam Vital Signs Vital Sign - Last Date Time Temp Pulse Resp B/P Pulse Ox O2 Delivery O2 Flow Rate FiO2 01/21/17 12:37 37.3 75 16 129/81 99 Room Air Intake and Output 01/20/17 01/20/17 01/21/17 Cumulative From/Thru 15:00 23:00 07:00 01/20/17 11:59 - 01/21/17 06:09 Intake Total 234 ml 1206 ml 1440 ml Output Total 650 ml 650 ml Balance 234 ml 556 ml 790 ml Intake Oral 240 ml 240 ml IV Total 234 ml 966 ml 1200 ml Output Urine Total 650 ml 650 ml Exam Gen: NAD, AOx4, HEENT: NCAT, PERRLA, EOMI, MMM, sclera anicteric. Neck: Soft, supple, no thyromegaly/JVD/LAD. Resp: CTAB, no R/R/W. CV: S1 S2, RRR, No M/R/G Abd: Soft, (+) BS, NT/ND, Mild TTP RUQ Ext: +PP, No edema. Skin: warm/dry/intact Neuro/Psych: Cooperative, appr mood/affect. CN II-XII grossly intact. No focal deficits. IVs and Medications Medications Reviewed: Medications were reviewed in detail Lab and Diagnostics Result Diagram: 01/21/1770401/21/17 07 X-Rays, CTs and MRIs 01/20/17 US ABDOMEN Gallbladder: The gallbladder is mildly distended with multiple heterogeneous intraluminal contents suggestive of biliary sludge. However, no layering or motion was visualized. No internal vascularity on color Doppler interrogation. No gallbladder wall thickening or pericholecystic fluid. Biliary ducts: Intrahepatic bile ducts are non-dilated. Extrahepatic bile duct caliber measures 4-5 mm. Normal is 6-7 mm or less in diameter, or 10 mm or less post-cholecystectomy. Pancreas: Visualized portions of the pancreas are sonographically normal. Spleen: Spleen is normal in size and homogeneous in echotexture. Kidneys: Right kidney measures 10.1 cm long; left kidney measures 11.2 cm long. No hydronephrosis. Aorta: Visualized aorta is normal in caliber at less than 3 cm. Iliacs: Proximal common iliac arteries are normal in caliber at less than 2.5 cm. IVC: Intrahepatic inferior vena cava is patent. Miscellaneous: No free abdominal fluid. IMPRESSION: 1. Heterogeneous gallbladder contents suggestive of biliary sludge. The differential includes a mass but no internal vascularity is demonstrated on color Doppler interrogation. 2. No gallbladder wall thickening or pericholecystic fluid. Assessment & Plan Patient is a 21 year old female h/o of palpitations, daily smoker, currently 8 -9 weeks gestation, 2 previous visits for nausea in ED this week and presenting again to the ED from urgent care with worsening nausea with emesis for 1.5 weeks. Pt has had decreased PO intake over last few days found to have transaminitis. Intractable nausea with emesis- poa, active- may be due to Hyperemesis . Infection less likey, consider gastroenteritis or colitis given diarrhea. Pt does have Ketonuria which is consistent with Hyperemesis . Repeat UA, f/u Urine Cx. No signif abd tenderness. Unlikely acute abd. Lipase not elevated. Continue with IVF. OB contacted by ED, following. Reglan, Promethazine PRN. Benadryl prn. Steroids would be last resort. Can resume po antiemetics once tolerates. Replete electrolytes prn. Transaminitis- POA, active May be due to dehydration. Vs prior labs, LFTs have increased significantly - bilirubin 1.4 from 0.6, AST 81 from 12, ALT 158 from 34. pelvic ultrasound was ordered today and shows an intrauterine with an estimated gestational age of 7 weeks and 3 days, no free fluid, no gallstones , however there was some sludge versus neoplasm in the gallbladder. ED discussed with director rehabilitation program Surgeon, Dr. Mckee who does not feel like this needs advanced imaging such as a CT scan at this time. - LFT's still elevated despite IVF overnight, check again in AM. - Consider other etiology than Hyperemesis , may need to consult GI if LFT's remain abnormal again in the AM. Given imaging options limited. Hypokalemia- acute, active- Likely due to nausea. Replete prn. Leukocytosis- poa, resolved. likely reactive rathe than infection. If febrile culture and consider antibiotics. - chronic, active. Beta hCG of 727188. 8-9 weeks gestation, Avoid Fetotoxic meds. Smoker- chronic, active. Continued Smoking cessation advised. Code- Full Status- Patient is admitted under observation status expected length of stay less than 2 midnights due to severity of presenting symptoms, risk of adverse events, and complexity of treatment plan. GI Prophylaxis: Proton Pump Inhibitor VTE Mechanical Devices: Intermittant Pneumatic CD Resuscitation Status: CPR: Attempt Resuscitation Michael Hauser MD Jan 21, 2017 13:12
--- NOTE | 2017-01-21 17:54 | NUR ---
Social Work Note: Initial Assessment Data& Assessment: EMR reviewed. SURGERY ASSISTANT met with pt at bedside to discuss discharge planning and assess for any unmet needs, SURGERY ASSISTANT role explained Discharge Planning Checklist provided. Maria A Liu is a 21 year old female admitted on 01/20/2017 for hyperemesis gravidarum. Pt has [facility] insurance coverage and does not have a PCP at this time. Pt is agreeable to follow up appointment at the residency clinic pending MD order. Pt lives in [place] with her mom, laurae and baby. Pt is independent with all ADL's at baseline with no DME needs. Pt declined DPOA/AD paperwork at this time. Pt Mom transporting pt home when medically ready. Pt denies any other needs. No other discharge needs or MD orders identified at this time. MD does not identify any concerns for pt capacity for self care. SURGERY ASSISTANT to continue to follow. Plan: Anticipated discharge home via POV when medically ready. Pt denies any other needs. No other discharge needs or MD orders identified at this time. SURGERY ASSISTANT to continue to follow if any needs arise. SCARLETT Zamorano Addendum: 01/21/17 at 1757 by ROBERTA EATON Amended: Links added.
--- NOTE | 2017-01-21 18:53 | NUR ---
Nausea/Vomiting Nausea/vomiting continued throughout shift. Zofran 4mg ineffective, Md asked to increase parameters from 4-8mg, have not yet administered 8mg to check efficasy. Benadryl 25mg IV admin, effective, patient has since fallen asleep. OBGYN called in later afternoon to discuss change in antiemetics, encouraged to admin po vs IV stated, patient is actively vomiting making it difficult. Consumed 25% of breakfast, no lunch/dinner d/t nausea. Passed on to JESSI RN.
[2017-01-22] MEDS: Promethazine Inj 25 MG in 0.9% Sodium Chloride 50 ML IV PRN ×2 (00:45→19:52)
[2017-01-22 00:54] VITALS: BP 104/67; PULSE 80; RESP 16; O2SAT 96
--- NOTE | 2017-01-22 05:34 | NUR ---
GI Pt. vomited x3 this shift, unable to take p.o prn nausea meds d/t actively vomiting, Administered IV promethazine with good effect, continues on IVF for hydration, Vitals stable, Pt. had a shower around 0100, stated feeling better, call light in reach at all times, will continue to monitor. Addendum: 01/22/17 at 0635 by FERNANDO DIAMOND RN Unable to take p.o scheduled vit. B6 d/t vomiting.
[2017-01-22 07:12] LABS: Hepatitis A Antibody IgM Negative (Negative); Hepatitis B Core Antibody IgM Negative (Negative)
--- NOTE | 2017-01-22 07:18 | PCM.PNOBIP ---
Subjective Date of Service Jan 22, 2017 Visit History Patient is a 21 year old female currently 8-9 weeks gestation, 2 previous visits for nausea in ED this week and presenting again to the ED from urgent care with worsening nausea with emesis for 1.5 weeks. Pt has had decreased PO intake over last few days. She did have some loose BM's, currently no Bm in past 24 hours. She was prescribe Unisom and vitamin B6 recently with minimal relief. She denies vaginal bleeding, abdominal pain, fevers, chills, cough, chest pain, SOB, headache, rash, itch, bleeding, back pain, or any other symptoms. Pt says her past did involve nausea but not to this extreme. Per ED note- Patient given IV fluids, benadryl and Reglan shortly after arrival. She has no abdominal tenderness of note on examination, and my suspicion for an acute surgical intra-abdominal process is very low. She has had similar symptoms previously. She has been taking Unisom and vitamin B6 with some relief. Upon reassessment, patient continues to have marked nausea and vomiting. Laboratory studies here reviewed, notable for a white blood cell count of 13.1, potassium of 3.1 (magnesium 1.9, K repleted in ED.) Beta hCG of 087547. Lipase within normal limits. Most notably, compared to her laboratory studies several days ago, her LFTs have increased significantly - bilirubin 1.4 from 0.6 , AST 81 from 12, ALT 158 from 34. She had a limited bedside ultrasound during her ED last visit that demonstrated an intrauterine . A formal pelvic ultrasound was ordered today and shows an intrauterine with an estimated gestational age of 7 weeks and 3 days, no free fluid, no gallstones, however there was some sludge versus neoplasm in the gallbladder. I discussed this, as well as the patient's laboratory studies, with Dr. Mckee as per below. He does not feel like this needs advanced imaging such as a CT scan at this time. Labs Laboratory Tests 01/21/17 07:05: White Blood Count 9.6, Red Blood Count 4.68, Hemoglobin 13.3, Hematocrit 37.0, Mean Corpuscular Volume 79.1, Mean Corpuscular Hemoglobin 28.4, Mean Corpuscular Hemoglobin Concent 35.9, Red Cell Distribution Width 14.0, Platelet Count 197, Neutrophils (%) (Auto) 57.6, Lymphocytes (%) (Auto) 30.1, Monocytes ( %) (Auto) 10.6, Eosinophils (%) (Auto) 1.0, Basophils (%) (Auto) 0.2 Subjective Patient is examined laying in bed. Patient stated she was up all night with nausea and vomiting. Patient noted minimal control on Zofran and Reglan. Patient not able to tolerate PO intake well. Denies fever, chills, diarrhea, headache, change in vision. Labs Laboratory Tests 01/21/17 07:05: White Blood Count 9.6, Red Blood Count 4.68, Hemoglobin 13.3, Hematocrit 37.0, Mean Corpuscular Volume 79.1, Mean Corpuscular Hemoglobin 28.4, Mean Corpuscular Hemoglobin Concent 35.9, Red Cell Distribution Width 14.0, Platelet Count 197, Neutrophils (%) (Auto) 57.6, Lymphocytes (%) (Auto) 30.1, Monocytes ( %) (Auto) 10.6, Eosinophils (%) (Auto) 1.0, Basophils (%) (Auto) 0.2 OB Intrapartum Assessment/Plan Assessment Patient is a 21 year old female currently 8-9 weeks gestation, admitted for nausea and vomiting during . Plan: Agree with medical plan. Continue medical management. We will continue follow this patient closely Thank you for allowing us to participate in this patient's care. Pain Evaluation: Adequate Pain Control VTE Mechanical Devices: Intermittant Pneumatic CD Vital Signs Vital Sign - Last Date Time Temp Pulse Resp B/P Pulse Ox O2 Delivery O2 Flow Rate FiO2 01/22/17 00:54 37.5 80 16 104/67 96 Room Air Intake and Output 01/21/17 01/21/17 01/22/17 Cumulative From/Thru 15:00 23:00 07:00 01/20/17 11:59 - 01/22/17 06:12 Intake Total 1715 ml 1206 ml 4361 ml Output Total 500 ml 1200 ml 2350 ml Balance 1215 ml 6 ml 2011 ml Intake Oral 400 ml 640 ml IV Total 1315 ml 1206 ml 3721 ml Output Urine Total 200 ml 600 ml 1450 ml Emesis 300 ml 600 ml 900 ml # Voids 3 2 5 # Bowel Movements 0 0 General: Alert, Oriented X3, Cooperative Head: Normal Eyes: PERRLA, EOMI, Scleral Anicteric Chest & Lungs: Chest Wall Normal, Clear to auscultation & percussion Cardiovascular: Regular Rate/Rhythm, Normal S1, Normal S2 Abdomen: Tender, Non-distended, No hepatosplenomegaly Extremities: No cyanosis/clubbing/edma bilat Lab and Diagnostics Result Diagram: 01/21/17 0705 01/21/17 1650 ELVIA VILLAR DO Jan 22, 2017 07:18
[2017-01-22 08:10] LABS: Free Thyroxine Index 4.5 (1.2-4.9); Thyroxine (T4) 12.6 ug/dL (4.5-12.0)
[2017-01-22] MEDS: Multivit-Miner-Folic Acid-Iron Tablet PO SCH (08:39)
[2017-01-22 10:00] VITALS: BP 137/80; PULSE 75; RESP 20; O2SAT 97
[2017-01-22] MEDS: Lactated Ringer's 1,000 ML IV SCH ×2 (10:53→19:05)
--- NOTE | 2017-01-22 12:17 | NUR ---
Nausea/vomiting Patient still actively nauseous and vomiting a green colored vomitus, not tolerating any intake at all. Oral meds given but patient threw up right after. Popsicles and tea offered to no avail. Patient expresses concerns of just "being tired", will try anything to stop nausea. will continue to monitor.
[2017-01-22] MEDS ORDERED: KCl 40 mEq/D5W 500 mL 40 MEQ in IV Premix 500 EACH IV ONE (14:00)
[2017-01-22] MEDS: MetoCLOpramide 5 mg/mL 2 mL Inj IVPUSH PRN (15:21)
--- NOTE | 2017-01-22 16:12 | PCM.CHPMED ---
Subjective Date of Service: Jan 22, 2017 Provider requesting consult: Cuauhtemoc Stevens Primary Physician: Admitting Physician: Michael Hauser MD Primary Care Physician: Roopa Attending Physician: Michael Hauser MD Admit Status: From the Emergency Department Chief Complaint: Chief Complaint: Intractable nausea and vomiting History of Present Illness: GASTROENTEROLOGY CONSULT: Attending Physician: Chago Aleman MD Resident Physician: Shalini Chapmanjanes Mcdonnell is an otherwise healthy 21-year-old at 8-9 weeks gestation transferred to the ED from Urgent Care for dehydration secondary to intractable nausea and vomiting. Patient states that she experienced morning sickness with her first but it was nothing like this. She states that she initially attributed her symptoms to some sort of 'bug' because she was having diarrhea as well as alternating fevers and chills. Those symptoms seem to have resolved and because the nausea and vomiting has persisted she states that she has been unable to keep anything down for several weeks. She was evaluated at Urgent Care twice in the last two weeks for the same symptoms. She reports a new prescription for Unisom and vitamin B6 for nausea without relief. Additionally she states that she has not tolerated the ODT zofran in that it too induces vomiting. She has not appreciated any aggravating or alleviating factors. She states that her symptoms are also associated with epigastric tenderness that is more intense right before vomiting. She has noticed some blood with vomiting but notes this is mild and previously attributed attributed to acid irritation in her throat. She denies vaginal bleeding, cough, chest pain , shortness of breath, headache, dizziness, vaginal bleeding, or urinary symptoms. In the ED, pelvic ultrasound showed an intrauterine with an estimated gestational age of 7 weeks and 3 days, no free fluid, no gallstones. However there was some sludge versus neoplasm in the gallbladder and per the ED physician case discussed with Dr. Mckee from General Surgery who did not find a need for advanced imaging to further evaluate gallbladder findings at this time. Review of Systems: A comprehensive review of systems was conducted with the patient and found to be negative except as above in the History of Present Illness. PMH Past Medical History Palpitations/chest pain Morning sickness Seroma related to separation of wound July 2016 Surgical History 08/07/16 Home Medications ODT Zofran Allergies: Coded Allergies: No Known Allergies (Unverified , 01/20/17) Family History Family History Father with heart disease Mother with hypertension Social History Hx Alcohol Use: NoHx Substance Use: NoHx Tobacco Use: Yes Smoking Status: Current Every Day Smoker Exam Vital Signs Vital Sign - Last Date Time Temp Pulse Resp B/P Pulse Ox O2 Delivery O2 Flow Rate FiO2 01/22/17 10:00 36.5 75 20 137/80 97 Room Air Intake and Output 01/21/17 01/21/17 01/22/17 Cumulative From/Thru 15:00 23:00 07:00 01/20/17 11:59 - 01/22/17 06:12 Intake Total 1715 ml 1206 ml 4361 ml Output Total 500 ml 1200 ml 2350 ml Balance 1215 ml 6 ml 2011 ml Intake Oral 400 ml 640 ml IV Total 1315 ml 1206 ml 3721 ml Output Urine Total 200 ml 600 ml 1450 ml Emesis 300 ml 600 ml 900 ml # Voids 3 2 5 # Bowel Movements 0 0 General: Well-appearing, young female in no acute distress. HEENT: Normocephalic, atraumatic. PERRLA, Anicteric sclera. Mucous membranes moist/pink Neck: Neck supple with full range of motion. Lungs: Clear to auscultation bilaterally with no crackles, wheezes, or rhonchi. Cardiovascular: Regular rate/rhythm. No murmurs Abdomen: Soft, mildly tender to palpation in epigastric area, no rebound or guarding. No masses. Normoactive bowel tones Extremities: No cyanosis/clubbing/edema bilaterally Skin: Damp. No obvious rashes or ulcerations Neurological: AOx3, No focal neurologic deficit. Normal speech Lab and Diagnostics Labs Laboratory Tests Test 01/21/17 16:30 01/21/17 16:50 01/22/17 06:55 Lactic Acid Level 0.8mmol/L (0.4-2.0) Sodium Level 136mEq/L (134-144) 135mEq/L (134-144) Potassium Level 3.4mEq/L (3.5-5.2) 3.3mEq/L (3.5-5.2) Chloride Level 102mEq/L (97-108) 100mEq/L (97-108) Carbon Dioxide Level 17mmol/L (18-29) 17mmol/L (18-29) Blood Urea Nitrogen 4mg/dL (6-20) 4mg/dL (6-20) Creatinine 0.41mg/dL (0.57-1.00) 0.37mg/dL (0.57-1.00) Estimat Glomerular Filtration Rate 278mL/min (>59) 313mL/min (>59) Glucose Level 75mg/dL (60-99) 81mg/dL (60-99) Calcium Level 8.6mg/dL (8.5-10.1) 8.7mg/dL (8.5-10.1) Total Bilirubin 0.8mg/dL (0.0-1.2) 0.8mg/dL (0.0-1.2) Aspartate Amino Transf (AST/SGOT) 71U/L (0-50) 64U/L (0-50) Alanine Aminotransferase (ALT/SGPT) 210U/L (0-32) 185U/L (0-32) Alkaline Phosphatase 74U/L (25-150) 79U/L (25-150) Total Protein 5.9g/dL (6.4-8.4) 5.8g/dL (6.4-8.4) Albumin 3.8g/dL (3.4-5.0) 3.7g/dL (3.4-5.0) Ketones Negative (Negative) Anti-Nuclear Antibody Screen Negative (Negative) Hepatitis A IgM Antibody Negative (Negative) Hepatitis B Surface Antigen Negative (Negative) Hepatitis B Core IgM Antibody Negative (Negative) Hepatitis C Antibody <0.1s/co ratio (0.0-0.9) Hepatitis C Comment Comment (.) Microbiology 01/22/17 Stool for WBCs - Final, Complete 01/20/17 Urine Culture - Final, Complete Mixed Urogenital Taryn Result Diagram: 01/21/17 0705 01/22/17 0655 X-Rays, CTs and MRIs 01/20/17 - US OB<14 WKS INDICATIONS: persistent n/v/d, preg. Eval IUP, appy, other abnl OUTSIDE/PRIOR DATING DATA: Last menstrual period (LMP): 11/20/16. LMP-based estimated date of delivery (JANENE): 08/27/17. First dating scan (date and location): 01/20/17. Estimated date of delivery (JANENE) from first dating scan: 09/05/17. IMPRESSION: - Single living intrauterine with calculated gestational age of 7 weeks 3 days corresponding to an estimated delivery date of 09/05/17. The findings are slightly discordant with patient's estimated delivery date by LMP of 08/27/17. Approved by: Paul Dillon M.D. on 01/20/2017 at 17:39 01/20/17 - US APPENDIX IMPRESSION: 1. Appendix not identified sonographically. 2. No free fluid in the right lower quadrant. 3. Distended gallbladder with heterogeneous filling defects likely representing biliary sludge. A mass lesion is less likely. 4. Small right paraovarian cyst. Approved by: Paul Dillon M.D. on 01/20/2017 at 17:41 01/20/17 - US ABDOMEN IMPRESSION: 1. Heterogeneous gallbladder contents suggestive of biliary sludge. The differential includes a mass but no internal vascularity is demonstrated on color Doppler interrogation. 2. No gallbladder wall thickening or pericholecystic fluid. Approved by: Paul Dillon M.D. on 01/20/2017 at 17:29 . Assessment & Plan Assessment 21-year-old at 8-9 weeks gestation transferred to the ED from Urgent Care for dehydration secondary to intractable nausea and vomiting. Hyperemesis gravidarum with associated dehydration and electrolyte abnormalities. - Pt reports subjective fever and chills associated with diarrhea several weeks ago that has since resolved. Clinical no systemic signs of infection: stool neg for WBC, urine culture w/normal taryn - OB is following as well and without concern for OB issues at this time. - LFTs elevated: bilirubin 1.4, AST 81, ALT 158 - Pelvic US on admission in addition to an intrauterine showed sludge versus neoplasm in the gallbladder. ED physician discussed case with General Surgery, no need for additional imaging at this time. Additional problems: -Transaminitis- likely related to dehydration -Mild hypokalemia- secondary to vomiting -- Beta hCG of [id number]. 8-9 weeks gestation -History of smoking- patient reports quitting with onset of symptoms. RECOMMENDATIONS: - Pending OB approval, recommend IV Ondansetron and ranitidine - Encourage hydration - Monitor LFTs - Replete electrolytes as needed . Problems: Pain Evaluation: Adequate Pain Control GI Prophylaxis: Proton Pump Inhibitor VTE Mechanical Devices: Intermittant Pneumatic CD Resuscitation Status: CPR: Attempt Resuscitation Shalini Chapman DO Jan 22, 2017 14:34 Shalini Chapman DO Jan 22, 2017 14:34 RECOMMENDATIONS: - IV Ondansetron and ranitidine - Encourage hydration - Monitor LFTs Problems: Pain Evaluation: Adequate Pain Control GI Prophylaxis: Proton Pump Inhibitor VTE Mechanical Devices: Intermittant Pneumatic CD Resuscitation Status: CPR: Attempt Resuscitation Shalini Chapman DO Jan 22, 2017 14:34
--- NOTE | 2017-01-22 17:40 | PCM.PNMED ---
Subjective Date of Service Jan 22, 2017 Subjective Reports continued nausea. Denies any other new issues/complaints Exam Vital Signs Vital Sign - Last Date Time Temp Pulse Resp B/P Pulse Ox O2 Delivery O2 Flow Rate FiO2 01/22/17 10:00 36.5 75 20 137/80 97 Room Air Intake and Output 01/21/17 01/21/17 01/22/17 Cumulative From/Thru 15:00 23:00 07:00 01/20/17 11:59 - 01/22/17 06:12 Intake Total 1715 ml 1206 ml 4361 ml Output Total 500 ml 1200 ml 2350 ml Balance 1215 ml 6 ml 2011 ml Intake Oral 400 ml 640 ml IV Total 1315 ml 1206 ml 3721 ml Output Urine Total 200 ml 600 ml 1450 ml Emesis 300 ml 600 ml 900 ml # Voids 3 2 5 # Bowel Movements 0 0 General: Alert, Cooperative, No Acute Distress Head: Normal Eyes: Scleral Anicteric Nose: Mucous Membr Moist/[place] Mouth: Mucous Membr Moist/[place] Neck: Supple Chest & Lungs: Chest Wall Normal, Clear to auscultation & percussion Cardiovascular: Regular Rate/Rhythm Pulses: NL carotid, radial, femoral, DP, PT Abdomen: Non-tender, Non-distended, Normoactive bowel tones, Soft Extremities: No cyanosis/clubbing/edma bilat Neurological: Grossly Neurologically Intact, Normal Speech IVs and Medications Medications Reviewed: Medications were reviewed in detail Lab and Diagnostics Result Diagram: 01/21/17 0705 01/22/17 0655 X-Rays, CTs and MRIs 01/20/17 US ABDOMEN Gallbladder: The gallbladder is mildly distended with multiple heterogeneous intraluminal contents suggestive of biliary sludge. However, no layering or motion was visualized. No internal vascularity on color Doppler interrogation. No gallbladder wall thickening or pericholecystic fluid. Biliary ducts: Intrahepatic bile ducts are non-dilated. Extrahepatic bile duct caliber measures 4-5 mm. Normal is 6-7 mm or less in diameter, or 10 mm or less post-cholecystectomy. Pancreas: Visualized portions of the pancreas are sonographically normal. Spleen: Spleen is normal in size and homogeneous in echotexture. Kidneys: Right kidney measures 10.1 cm long; left kidney measures 11.2 cm long. No hydronephrosis. Aorta: Visualized aorta is normal in caliber at less than 3 cm. Iliacs: Proximal common iliac arteries are normal in caliber at less than 2.5 cm. IVC: Intrahepatic inferior vena cava is patent. Miscellaneous: No free abdominal fluid. IMPRESSION: 1. Heterogeneous gallbladder contents suggestive of biliary sludge. The differential includes a mass but no internal vascularity is demonstrated on color Doppler interrogation. 2. No gallbladder wall thickening or pericholecystic fluid. Assessment & Plan 21 year old female h/o of palpitations, daily smoker, currently 8-9 weeks gestation, 2 previous visits for nausea in ED this week and presenting again to the ED from urgent care with worsening nausea with emesis for 1.5 weeks. Pt has had decreased PO intake over last few days found to have transaminitis. # Intractable nausea with emesis- poa, active - Suspect likely due Hyperemesis . - GI consulted today for official impression and recommendations. will followup with recs - Continue with supportive care including IVF, anti-emetics, and pain control as needed - Appreciate Ob consult as well. Will followup with recs # Acute Transaminitis, present on admission. Improving - ? if due to dehydration - Pelvic ultrasound showing some sludge versus neoplasm in the gallbladder. - Followup repeat labs in AM # Acute Hypokalemia, present on admission. Ongoing - Likely due to nausea. - Replete and followup # Acute Leukocytosis, present on admission. Resolved - Likely reactive # . Present on admission. - Beta hCG of 014310. - 8-9 weeks gestation - Followup with Ob consult # Smoker- chronic, active. - Continued Smoking cessation advised. Dispo: 1-2 days pending above workup GI Prophylaxis: Proton Pump Inhibitor VTE Mechanical Devices: Intermittant Pneumatic CD Resuscitation Status: CPR: Attempt Resuscitation Cuauhtemoc Stevens Jan 22, 2017 17:40 Cuauhtemoc Stevens Jan 22, 2017 17:40
[2017-01-22 17:41] VITALS: BP 134/81; PULSE 67; RESP 20; O2SAT 97
--- NOTE | 2017-01-22 18:56 | PROG NOTE ---
[address] [address] PROGRESS NOTE PATIENT: SOFIA MCCOLLUM : 1995 MR#: [id number] ADMIT: 01/20/2017 JOB ID: [id number] DATE: 01/22/2017 SUBJECTIVE: This is a 21-year-old female. She is 2, para 1, at about seven weeks based on 1st trimester ultrasound. She was admitted for hyperemesis. For additional history see above documentation. The patient after admission was placed on supportive management and further evaluation was done to exclude hepatitis, which came back negative. She was seen by a GI physician to exclude GI reasons causing her nausea, vomiting, and diarrhea. She was also counseled by general surgeon that no indication for surgical management. When I saw the patient this afternoon around 4:30 she is lying in bed. She is still complaining of nausea and several times of vomiting with variable amount. She still could not tolerate p.o. She still could not tolerate food. She voided once today per patient and she had a last bowel movement this morning which is still soft and watery. PHYSICAL EXAMINATION: The patient has been afebrile. Her temperature 36.5 this morning and her pulse 75, respiratory rate 20, blood pressure 137/80. Her O2 sat 97 at room air. Her abdomen is soft, nontender. Extremities nontender. Pelvic examination was not done. Her ins and outs so far today are 2200 in and 1900 out. Her urine output totally was 1300. Her emesis is about 600 mL. LABORATORY: There is no CBC done today. Her last CBC was H and H 13.3/37 and platelet count 197. Her CMP showed her sodium today is 135, her potassium 3.3, relatively stable compared to 3.4 yesterday. Creatinine 0.37. AST 64, ALT 185 which both are gradually decreasing from previous 98/216. Her TSH which was done yesterday is 0.037, free T4 4.5. Yesterday afternoon she was negative for ketones. Yesterday there was one was done which showed negative. IMAGING: The pelvic ultrasound was done two days ago which showed intrauterine at seven weeks . No other abnormal findings. ASSESSMENT AND PLAN: 1. A 21-year-old female, 2, para 1, at 37 weeks . At this time looks like hyperemesis of . Will continue with supportive management with IV hydration and IV with D5LR and IV medication for nausea and vomiting recommending. 2. Also agreed with the recommendation from GI of Zofran IV. 3. At this time if patient still constant vomiting with p.o., would possibly benefit patient better by n.p.o. at this time until she feels more comfortable for p.o. 4. The patient has been making her decision for for this before her hyperemesis started. She has scheduled for Friday at [place]. The patient asked for whether there is any possibilities to have her earlier. We will consider contacting clinic at [facility] to see whether there is a possibility to have an earlier termination of surgically. 5. For abnormal TSH level at this time not recommending medical treatment. Followup will be needed after .
[2017-01-22 21:10] VITALS: BP 121/75; PULSE 69; RESP 16; O2SAT 95
[2017-01-22] MEDS: Ondansetron 2 mg/mL 2 mL Inj IVPUSH PRN (22:05)
[2017-01-23] MEDS: MetoCLOpramide 5 mg/mL 2 mL Inj IVPUSH PRN (00:28)
[2017-01-23 00:35] VITALS: BP 116/73; PULSE 86; RESP 16; O2SAT 97
[2017-01-23] MEDS: Lactated Ringer's 1,000 ML IV SCH (05:05)
[2017-01-23 05:10] VITALS: BP 108/68; PULSE 65; RESP 16; O2SAT 97
--- NOTE | 2017-01-23 05:40 | NUR ---
N/V On initial assessment patient complaining of nausea with emesis. 300ml emesis in total noted this shift. Prn Reglan, Phenergan and Zofran administered throughout shift with some relief but not resolve of nausea after administration. Unable to tolerate any PO intake including SL Zofran. Currently resting in bed without any complaints.
[2017-01-23] MEDS: Ondansetron 2 mg/mL 2 mL Inj IVPUSH PRN (07:47)
[2017-01-23 08:02] LABS: INR 1.17 ratio
[2017-01-23 08:07] LABS: Magnesium 1.8 mg/dL (1.6-2.6)
[2017-01-23] MEDS: Multivit-Miner-Folic Acid-Iron Tablet PO SCH (09:51)
--- NOTE | 2017-01-23 10:44 | PCM.PNMED ---
Subjective Date of Service Jan 23, 2017 Subjective GASTROENTEROLOGY PROGRESS NOTE: Attending Physician: Chago Aleman MD Resident Physician: Shalini Chapman DO No acute events overnight. Patient is resting comfortably this morning and states that her nausea has improved. However, she notes that she has not really been eating anything either. Additionally she states that her diarrhea has return. Recall that she reported fever and chills as well as diarrhea at the onset of her nausea/vomiting several weeks ago. Currently she denies fever, chills, bloody or dark colored stool. She notes epigastric discomfort, which she attributes to her empty stomach and recent vomiting. Exam Vital Signs Vital Sign - Last Date Time Temp Pulse Resp B/P Pulse Ox O2 Delivery O2 Flow Rate FiO2 01/23/17 05:10 36.8 65 16 108/68 97 Room Air Intake and Output 01/22/17 01/22/17 01/23/17 Cumulative From/Thru 15:00 23:00 07:00 01/20/17 11:59 - 01/23/17 05:25 Intake Total 1066 ml 2154 ml 7581 ml Output Total 700 ml 302 ml 3352 ml Balance 366 ml 1852 ml 4229 ml Intake Oral 0 ml 640 ml IV Total 1066 ml 2154 ml 6941 ml Output Urine Total 700 ml 2 ml 2152 ml Emesis 300 ml 1200 ml # Voids 5 # Bowel Movements 2 2 4 Exam General: Well-appearing, young female in no acute distress. Lungs: Clear to auscultation bilaterally with no crackles, wheezes, or rhonchi. Cardiovascular: Regular rate/rhythm. No murmurs Abdomen: Soft, mildly tender to palpation in epigastric area, no rebound or guarding. No masses. Normoactive bowel tones Extremities: No cyanosis/clubbing/edema bilaterally Skin: Damp. No obvious rashes or ulcerations IVs and Medications Medications Reviewed: Medications were reviewed in detail Lab and Diagnostics Laboratory Tests 72 Hours Test 01/20/17 12:24 01/20/17 16:22 01/21/17 07:05 01/21/17 16:30 White Blood Count 13.1th/mm3 (3.8-10.1) 9.6th/mm3 (3.8-10.1) Red Blood Count 5.47mil/mm3 (3.90-5.20) 4.68mil/mm3 (3.90-5.20) Hemoglobin 15.5g/dL (12.0-15.6) 13.3g/dL (12.0-15.6) Hematocrit 41.9% (35.0-46.0) 37.0% (35.0-46.0) Mean Corpuscular Volume 76.6fL (81-100) 79.1fL (81-100) Mean Corpuscular Hemoglobin 28.3pg (27.0-35.0) 28.4pg (27.0-35.0) Mean Corpuscular Hemoglobin Concent 37.0% (32.0-37.0) 35.9% (32.0-37.0) Red Cell Distribution Width 13.9% (12.3-15.4) 14.0% (12.3-15.4) Platelet Count 283bil/L (150-400) 197bil/L (150-400) Neutrophils (%) (Auto) 73.4% (40-74) 57.6% (40-74) Lymphocytes (%) (Auto) 17.6% (14-46) 30.1% (14-46) Monocytes (%) (Auto) 8.5% (4-12) 10.6% (4-12) Eosinophils (%) (Auto) 0.1% (0-5) 1.0% (0-5) Basophils (%) (Auto) 0.1% (0-3) 0.2% (0-3) Sodium Level 136mEq/L (134-144) 134mEq/L (134-144) Potassium Level 3.1mEq/L (3.5-5.2) 3.2mEq/L (3.5-5.2) Chloride Level 97mEq/L (97-108) 103mEq/L (97-108) Carbon Dioxide Level 18mmol/L (18-29) 16mmol/L (18-29) Blood Urea Nitrogen 9mg/dL (6-20) 6mg/dL (6-20) Creatinine 0.46mg/dL (0.57-1.00) 0.42mg/dL (0.57-1.00) Estimat Glomerular Filtration Rate 243mL/min (>59) 270mL/min (>59) Glucose Level 100mg/dL (60-99) 88mg/dL (60-99) Calcium Level 9.9mg/dL (8.5-10.1) 8.6mg/dL (8.5-10.1) Magnesium Level 1.9mg/dL (1.6-2.6) Total Bilirubin 1.4mg/dL (0.0-1.2) 1.0mg/dL (0.0-1.2) Aspartate Amino Transf (AST/SGOT) 81U/L (0-50) 98U/L (0-50) Alanine Aminotransferase (ALT/SGPT) 158U/L (0-32) 216U/L (0-32) Alkaline Phosphatase 77U/L (25-150) 69U/L (25-150) Total Protein 7.6g/dL (6.4-8.4) 5.9g/dL (6.4-8.4) Albumin 4.6g/dL (3.4-5.0) 3.6g/dL (3.4-5.0) Lipase 17U/L (13-60) HCG Beta Subunit [id number]/mL Hold Garcia Top Tube Received (Received) Urine Color Dark yellow (YELLOW) Urine Appearance Hazy (CLEAR,HAZY) Urine pH 6.5 (5.0-8.0) Urine Specific [place] 1.025 (1.003-1.035) Urine Protein Tracemg/dL (NEG,TRACE) Urine Glucose (UA) Negativemg/dL (NEGATIVE) Urine Ketones 80mg/dL (NEGATIVE) Urine Occult Blood Negative (NEGATIVE) Urine Nitrite Negative (NEGATIVE) Urine Bilirubin Moderate (NEGATIVE) Urine Ictotest Positive (Negative) Urine Urobilinogen 4.0mg/dL (NORMAL) Urine Leukocyte Esterase Small (NEGATIVE) Urine RBC 0-2/hpf (0-2) Urine WBC 6-10/hpf (0-5) Urine Epithelial Cells Moderate/hpf (NONE-MOD) Urine Crystals None seen (NONE SEEN) Urine Bacteria Few/hpf (NONE-FEW) Urine Hyaline Casts None/lpf (NONE) Urine Granular Casts None seen (NONE SEEN) Urine Waxy Casts None seen (NONE SEEN) Urine Red Blood Cell Casts None seen (NONE SEEN) Urine White Blood Cell Casts None seen (NONE SEEN) Urine Mucus Present (None Seen) Urine Trichomonas None seen (NONE SEEN) Urine Yeast None (NONE SEEN) Urinalysis Comment None Urine Culture Reflexed Indicated Direct Bilirubin 0.5mg/dL (0.0-0.3) Thyroid Stimulating Hormone (TSH) 0.037uIU/mL (0.450-4.500) Free Thyroxine Index 4.5 (1.2-4.9) Thyroxine (T4) 12.6ug/dL (4.5-12.0) Triiodothyronine (T3) Uptake 36% (24-39) Lactic Acid Level 0.8mmol/L (0.4-2.0) Test 01/21/17 16:50 01/22/17 06:55 01/23/17 07:15 Sodium Level 136mEq/L (134-144) 135mEq/L (134-144) Potassium Level 3.4mEq/L (3.5-5.2) 3.3mEq/L (3.5-5.2) Chloride Level 102mEq/L (97-108) 100mEq/L (97-108) Carbon Dioxide Level 17mmol/L (18-29) 17mmol/L (18-29) Blood Urea Nitrogen 4mg/dL (6-20) 4mg/dL (6-20) Creatinine 0.41mg/dL (0.57-1.00) 0.37mg/dL (0.57-1.00) Estimat Glomerular Filtration Rate 278mL/min (>59) 313mL/min (>59) Glucose Level 75mg/dL (60-99) 81mg/dL (60-99) Calcium Level 8.6mg/dL (8.5-10.1) 8.7mg/dL (8.5-10.1) Total Bilirubin 0.8mg/dL (0.0-1.2) 0.8mg/dL (0.0-1.2) Aspartate Amino Transf (AST/SGOT) 71U/L (0-50) 64U/L (0-50) Alanine Aminotransferase (ALT/SGPT) 210U/L (0-32) 185U/L (0-32) Alkaline Phosphatase 74U/L (25-150) 79U/L (25-150) Total Protein 5.9g/dL (6.4-8.4) 5.8g/dL (6.4-8.4) Albumin 3.8g/dL (3.4-5.0) 3.7g/dL (3.4-5.0) Ketones Negative (Negative) Anti-Nuclear Antibody Screen Negative (Negative) Hepatitis A IgM Antibody Negative (Negative) Hepatitis B Surface Antigen Negative (Negative) Hepatitis B Core IgM Antibody Negative (Negative) Hepatitis C Antibody <0.1s/co ratio (0.0-0.9) Hepatitis C Comment Comment (.) Result Diagram: 01/21/17 0705 01/22/17 0655 X-Rays, CTs and MRIs 01/20/17 - US OB<14 WKS IMPRESSION: 1. Single living intrauterine with calculated gestational age of 7 weeks 3 days corresponding to an estimated delivery date of 09/05/17. The findings are slightly discordant with patient's estimated delivery date by LMP of 08/27/17. Approved by: Paul Dillon M.D. on 01/20/2017 at 17:39 01/20/17 - US APPENDIX IMPRESSION: 1. Appendix not identified sonographically. 2. No free fluid in the right lower quadrant. 3. Distended gallbladder with heterogeneous filling defects likely representing biliary sludge. A mass lesion is less likely. 4. Small right paraovarian cyst. Approved by: Paul Dillon M.D. on 01/20/2017 at 17:41 01/20/17 - US ABDOMEN IMPRESSION: 1. Heterogeneous gallbladder contents suggestive of biliary sludge. The differential includes a mass but no internal vascularity is demonstrated on color Doppler interrogation. 2. No gallbladder wall thickening or pericholecystic fluid. Approved by: Paul Dillon M.D. on 01/20/2017 at 17:29 . Assessment & Plan 21-year-old at 8-9 weeks gestation transferred to the ED from Urgent Care for dehydration secondary to intractable nausea and vomiting, elevated transaminases most likely due to hyperemesis gravidarum associated with dehydration. abdominal u/s - IMPRESSION: 1. Heterogeneous gallbladder contents suggestive of biliary sludge. The differential includes a mass but no internal vascularity is demonstrated on color Doppler interrogation. 2. No gallbladder wall thickening or pericholecystic fluid. Hyperemesis gravidarum with associated dehydration and electrolyte abnormalities. - Pt reports subjective fever and chills associated with diarrhea several weeks ago that had resolved. Now with multiple loose stools but no systemic signs of infection: stool neg for WBC, urine culture w/normal taryn. Unlikely infectious. - Presentation and history of persistent vomiting, dehydration, ketonuria, hypokalemia, and abnormal LFTs consistent with hyperemesis gravidarum. - LFTs elevated: AST 100, ALT 226. Hepatitis panel negative, JULIETA negative - OB is following as well and without concern for OB issues at this time. - Pelvic US on admission in addition to an intrauterine showed sludge versus neoplasm in the gallbladder. ED physician discussed case with General Surgery, no need for additional imaging at this time. Additional problems: -Transaminitis- likely related to dehydration secondary to vomiting -Mild hypokalemia- secondary to vomiting -- Beta hCG of 167773. 8-9 weeks gestation -History of smoking- patient reports quitting with onset of symptoms. RECOMMENDATIONS: - Pending OB approval, recommend IV Ondansetron and ranitidine - Encourage hydration - Monitor LFTs - Replete electrolytes as needed - stool studies for diarrhea - await celiac panel, will cont to follow . GI Prophylaxis: Proton Pump Inhibitor VTE Mechanical Devices: Intermittant Pneumatic CD Resuscitation Status: CPR: Attempt Resuscitation Shalini Chapman DO Jan 23, 2017 08:08 Chago Aleman MD Jan 23, 2017 11:47
--- NOTE | 2017-01-23 14:23 | PCM.DIMED ---
Discharge Instructions Date of Service Jan 23, 2017 Dates of Hospitalization Jan 20, 2017 at 16:24 Discharge Diagnosis Discharge Diagnosis # Intractable nausea with emesis suspect most likely due Hyperemesis , present on admission. Resolved. # Acute Transaminitis, present on admission. Ongoing. - Followup with primary care provider or dyeing machine back tender to ensure resolution # Acute Hypokalemia, present on admission. Ongoing # Acute diarrhea. Present on admission. Improved but not resolved. # Acute Leukocytosis, present on admission. Resolved # . Present on admission. - Beta hCG of 936541. - 8-9 weeks gestation Medication Instructions Additional med instructions Resume home medications as before Diet Discharge Diet: No restrictions Activity Discharge Activity: No restrictions Call your provider Call your provider for: Fever or Chills, Shortness of breath, Bleeding, Vomitting, Excessive diarrhea Patient Instructions Patient Instructions Seek immediate medical attention if any new or worsening signs or symptoms occur. Follow-up plan 1. Followup with primary care provider and/or dyeing machine back tender within one week Cuauhtemoc Stevens Jan 23, 2017 14:22
--- NOTE | 2017-01-23 14:30 | PCM.DC.MED ---
Discharge Summary Date of Service Jan 23, 2017 Dates of Hospitalization Date of Hospital Admission Jan 20, 2017 at 16:24 Date of Discharge: Jan 23, 2017 Providers: Admitting Physician: Michael Hauser MD Primary Care Physician: Roopa Attending Physician: Cuauhtemoc Stevens Diagnosis at Time of Discharge Diagnosis at Time of Discharge # Intractable nausea with emesis suspect most likely due Hyperemesis , present on admission. Resolved. # Acute Transaminitis, present on admission. Ongoing. - Followup with primary care provider or manufacturing millwright to ensure resolution # Acute Hypokalemia, present on admission. Ongoing # Acute diarrhea. Present on admission. Improved but not resolved. # Acute Leukocytosis, present on admission. Resolved # . Present on admission. - Beta hCG of 647690. - 8-9 weeks gestation Consultations 1. GI 2. ACCOUNTS PAYABLE TECHNICIAN Procedures XRay, CTs & MRIs 01/20/17 - US OB<14 WKS IMPRESSION: 1. Single living intrauterine with calculated gestational age of 7 weeks 3 days corresponding to an estimated delivery date of 09/05/17. The findings are slightly discordant with patient's estimated delivery date by LMP of 08/27/17. Approved by: Paul Dillon M.D. on 01/20/2017 at 17:39 01/20/17 - US APPENDIX IMPRESSION: 1. Appendix not identified sonographically. 2. No free fluid in the right lower quadrant. 3. Distended gallbladder with heterogeneous filling defects likely representing biliary sludge. A mass lesion is less likely. 4. Small right paraovarian cyst. Approved by: Paul Dillon M.D. on 01/20/2017 at 17:41 01/20/17 - US ABDOMEN IMPRESSION: 1. Heterogeneous gallbladder contents suggestive of biliary sludge. The differential includes a mass but no internal vascularity is demonstrated on color Doppler interrogation. 2. No gallbladder wall thickening or pericholecystic fluid. Approved by: Paul Dillon M.D. on 01/20/2017 at 17:29 . Brief History As noted in H&P by Dr. Hauser: Patient is a 21 year old female h/o of palpitations, currently 8-9 weeks gestation, 2 previous visits for nausea in ED this week and presenting again to the ED from urgent care with worsening nausea with emesis for 1.5 weeks. Pt has had decreased PO intake over last few days. She does endorse some loose BM's. She was prescribe Unisom and vitamin B6 recently with minimal relief. She denies vaginal bleeding, abdominal pain, fevers, chills, cough, chest pain, SOB, headache, rash, itch, bleeding, back pain, or any other symptoms. Pt says her past did involve nausea but not to this extreme. Hospital Course # Intractable nausea with emesis suspect most likely due Hyperemesis Gravidarum , present on admission. Resolved. - GI was consulted. Official impression was that this is most likely hyperemesis gravidarum - Imaging studies were as noted above - OB was also consulted and per GI and Ob recommendations patient was continued with conservative care including IVF and anti-emetics - By day of discharge patient reports complete resolution of her nausea and vomiting and reports tolerating regular diet and requesting discharge home. # Acute Transaminitis, present on admission. Ongoing. - Per GI suspect this to be related to dehydration and hyperemesis noted above - Patient is strongly advised to followup with primary care provider or manufacturing millwright within the coming week to ensure resolution. Patient tells me she already has an Ob followup appointment on Friday # Acute Hypokalemia, present on admission. Ongoing - Patient encouraged to continue with her oral potassium supplement which she has at home. # Acute diarrhea. Present on admission. Improved but not resolved. - Stool leukocyte was negative. - GI consult doesn't think this is infectious. - Further followup as outpatient as noted above. # Acute Leukocytosis, present on admission. Resolved # . Present on admission. - Beta hCG of [id number]. - 8-9 weeks gestation # Smoker- chronic, active. - Continued Smoking cessation advised. Exam Vital Signs (Last) Date Time Temp Pulse Resp B/P Pulse Ox O2 Delivery O2 Flow Rate FiO2 01/23/17 05:10 36.8 65 16 108/68 97 Room Air Exam General: Alert, Cooperative, No Acute Distress Head: Normal Eyes: Scleral Anicteric Nose: Mucous Membr Moist/[place] Mouth: Mucous Membr Moist/[place] Neck: Supple Chest & Lungs: Chest Wall Normal, Clear to auscultation bilat Cardiovascular: Regular Rate/Rhythm Abdomen: Non-tender, Non-distended, Normoactive bowel tones, Soft Extremities: No cyanosis/clubbing/edema bilat Neurological: Grossly Neurologically Intact, Normal Speech Test 9/4/17 12:24 01/20/17 16:22 01/21/17 07:05 01/21/17 16:30 Lipase 17U/L (13-60) HCG Beta Subunit [id number]/mL Hold Garcia Top Tube Received (Received) Urine Color Dark yellow (YELLOW) Urine Appearance Hazy (CLEAR,HAZY) Urine pH 6.5 (5.0-8.0) Urine Specific [place] 1.025 (1.003-1.035) Urine Protein Tracemg/dL (NEG,TRACE) Urine Glucose (UA) Negativemg/dL (NEGATIVE) Urine Ketones 80mg/dL (NEGATIVE) Urine Occult Blood Negative (NEGATIVE) Urine Nitrite Negative (NEGATIVE) Urine Bilirubin Moderate (NEGATIVE) Urine Ictotest Positive (Negative) Urine Urobilinogen 4.0mg/dL (NORMAL) Urine Leukocyte Esterase Small (NEGATIVE) Urine RBC 0-2/hpf (0-2) Urine WBC 6-10/hpf (0-5) Urine Epithelial Cells Moderate/hpf (NONE-MOD) Urine Crystals None seen (NONE SEEN) Urine Bacteria Few/hpf (NONE-FEW) Urine Hyaline Casts None/lpf (NONE) Urine Granular Casts None seen (NONE SEEN) Urine Waxy Casts None seen (NONE SEEN) Urine Red Blood Cell Casts None seen (NONE SEEN) Urine White Blood Cell Casts None seen (NONE SEEN) Urine Mucus Present (None Seen) Urine Trichomonas None seen (NONE SEEN) Urine Yeast None (NONE SEEN) Urinalysis Comment None Urine Culture Reflexed Indicated White Blood Count 9.6th/mm3 (3.8-10.1) Red Blood Count 4.68mil/mm3 (3.90-5.20) Hemoglobin 13.3g/dL (12.0-15.6) Hematocrit 37.0% (35.0-46.0) Mean Corpuscular Volume 79.1fL (81-100) Mean Corpuscular Hemoglobin 28.4pg (27.0-35.0) Mean Corpuscular Hemoglobin Concent 35.9% (32.0-37.0) Red Cell Distribution Width 14.0% (12.3-15.4) Platelet Count 197bil/L (150-400) Neutrophils (%) (Auto) 57.6% (40-74) Lymphocytes (%) (Auto) 30.1% (14-46) Monocytes (%) (Auto) 10.6% (4-12) Eosinophils (%) (Auto) 1.0% (0-5) Basophils (%) (Auto) 0.2% (0-3) Direct Bilirubin 0.5mg/dL (0.0-0.3) Thyroid Stimulating Hormone (TSH) 0.037uIU/mL (0.450-4.500) Free Thyroxine Index 4.5 (1.2-4.9) Thyroxine (T4) 12.6ug/dL (4.5-12.0) Triiodothyronine (T3) Uptake 36% (24-39) Lactic Acid Level 0.8mmol/L (0.4-2.0) Test 01/21/17 16:50 01/23/17 07:15 01/23/17 12:00 Ketones Negative (Negative) Anti-Nuclear Antibody Screen Negative (Negative) Anti-Smooth Muscle Antibody 11Units (0-19) Liver/Kidney Microsomal Titer 1.8Units (0.0-20.0) Hepatitis A IgM Antibody Negative (Negative) Hepatitis B Surface Antigen Negative (Negative) Hepatitis B Core IgM Antibody Negative (Negative) Hepatitis C Antibody <0.1s/co ratio (0.0-0.9) Hepatitis C Comment Comment (.) Prothrombin Time 12.6sec (8.1-12.5) Prothromb Time International Ratio 1.17ratio Activated Partial Thromboplast Time 24.0sec (22.8-33.0) Sodium Level 133mEq/L (134-144) Potassium Level 3.4mEq/L (3.5-5.2) Chloride Level 99mEq/L (97-108) Carbon Dioxide Level 17mmol/L (18-29) Blood Urea Nitrogen 5mg/dL (6-20) Creatinine 0.36mg/dL (0.57-1.00) Estimat Glomerular Filtration Rate 323mL/min (>59) Glucose Level 79mg/dL (60-99) Calcium Level 8.8mg/dL (8.5-10.1) Magnesium Level 1.8mg/dL (1.6-2.6) Total Bilirubin 1.2mg/dL (0.0-1.2) Aspartate Amino Transf (AST/SGOT) 100U/L (0-50) Alanine Aminotransferase (ALT/SGPT) 226U/L (0-32) Alkaline Phosphatase 84U/L (25-150) Total Protein 5.6g/dL (6.4-8.4) Albumin 3.6g/dL (3.4-5.0) Discharge Medications Discharge Medications [id number]/Iron Fumarate/FA/Dss ( 19 Tablet) 1 Each Tablet 1 EACH PO QAM ( Reported) Potassium Chloride ER (Potassium Chloride ER) 10 Meq Tablet 10 MEQ PO BIDWM ( Reported) TAKE WITH FOOD Pyridoxine (Vitamin B-6) 50 Mg Tablet 50 MG PO DAILY Prescribed by: BHARAT CALHOUN MD As needed Dimenhydrinate (Dramamine) 25 Mg Tab.chew 25 MG PO Q4H PRN PRN For Nausea/ Vomiting (Reported) Ondansetron ODT (Zofran ODT) 4 Mg Tablet 4 MG PO Q4H PRN PRN For Nausea Prescribed by: BHARAT CALHOUN MD Promethazine (Promethazine) 25 Mg Tablet 25 MG PO Q6H PRN PRN For Nausea Prescribed by: LATIA MACKENZIE DO Promethazine Supp (Promethazine Supp) 25 Mg Supp 25 MG RECTAL Q8H PRN PRN For Nausea/Vomiting Prescribed by: LATIA MACKENZIE DO Additional med instructions Resume home medications as before Followup Plan Disposition: Home Follow-up plan 1. Followup with primary care provider and/or manufacturing millwright within one week Discharge Diet: No restrictions Discharge Activity: No restrictions Patient Instructions Seek immediate medical attention if any new or worsening signs or symptoms occur. Time spent 30 min copies to: Amber Gar MD; Mara Rodriguez MD, Masoud Jan 23, 2017 14:30
[2017-01-23 15:21] VITALS: BP 123/73; PULSE 90; RESP 16; O2SAT 97
--- NOTE | 2017-01-23 16:00 | NUR ---
Discharge Patient discharge home accompanied by her significant other, denies any pain and nausea upon discharge. Notes and instructions given and well understood by patient. All belongings taken home with her.
== END 2017-01-23 16:00 | disposition home or self-care (01) | DRG 781 ==
LOC: SED 11:54 → MOC 16:24 → OBSVTOIN 16:24
PROVIDERS: ADMIT Internal Medicine; ATTEND Internal Medicine
PROC: 10H07YZ Insertion of Other Device into Products of Conception, Via Natural or Artificial Opening (ICD-10-PCS; principal; 2017-01-21)
DX: O21.1 Hyperemesis gravidarum with metabolic disturbance (principal); F17.200 Nicotine dependence, unspecified, uncomplicated; O99.331 Smoking (tobacco) complicating pregnancy, first trimester; Z3A.08 8 weeks gestation of pregnancy

== ENCOUNTER 2017-01-28 18:40 | Emergency (ER) | payer OTHER ==
[~2017-01-28] VITALS: Ht 154.9 cm; Wt 72.7 kg
[~2017-01-28 18:40] MED LIST changes: -Ascorbic Acid PO; +DIME25TA2 PO; -DOCU-41 PO; -DOXY25TA46 PO; -FERR-74 PO; -IBUP800T28 PO; -OXYC1TAB24 PO; +POTA10TA12 PO; +PREN-56 PO; -PREN1TAB25 PO
[2017-01-28 18:54] VITALS: BP 97/64; PULSE 92; RESP 17; O2SAT 96
[2017-01-28 19:53] LABS: BASOPHILS % (AUTO) 0.2 % (0-3); EOSINOPHILS % (AUTO) 0.7 % (0-5); MONOCYTES % (AUTO) 8.5 % (4-12); Mean Corpuscular Hemoglobin 28.8 pg (27.0-35.0); Mean Corpuscular Volume 81.4 fL (81-100); NEUTROPHILS % (AUTO) 66.1 % (40-74); Platelet Count 259 bil/L (150-400)
[2017-01-28 20:14] LABS: Magnesium 1.9 mg/dL (1.6-2.6)
[2017-01-28] MEDS ORDERED: 0.9% Sodium Chloride 1,000 ML IV ONE (20:43)
[2017-01-28] MEDS ORDERED: Ondansetron 2 mg/mL 2 mL Inj IVPUSH ONE (20:45)
[2017-01-28] MEDS ORDERED: HYDROmorphone 0.5 mg/0.5 mL iSecure Syringe IVPUSH PRN (20:45)
--- NOTE | 2017-01-28 20:48 | ED.REPORT ---
HPI- Female Date of Service Jan 28, 2017 ED Provider: Corky Rizo MD The patient is a 21 year old, 8 week female () who presents to the ED with significant vaginal bleeding that began this afternoon at 1600. The patient took a dose of methotrexate or elective this afternoon at 1300. Vaginal bleeding initially began at 1600 until she experienced sudden onset of cramping following by significant amount of vaginal blood loss. She filled the first pad within 5 minutes and has gone through ~6 pads in the past 4 hours. [facility] for persistent bleeding. Associated symptoms include nausea, lightheadedness and dizziness. Patient has a 5 month old that was born to . The patient was recently admitted on 01/20 for hyperemesis gravidum and was discharged in stable condition after symptoms were controlled. Nursing Notes Stated Complaint: CANT STOP VAGINAL BLEEDING Chief Complaint: Female Abdominal Pain Nursing Notes Reviewed: Yes Allergies: Coded Allergies: No Known Allergies (Unverified , 01/28/17) Scheduled Ukc288/Iron Fumarate/FA/Dss ( 19 Tablet) 1 Each Tablet 1 EACH PO QAM Potassium Chloride ER (Potassium Chloride ER) 10 Meq Tablet 10 MEQ PO BIDWM TAKE WITH FOOD Pyridoxine (Vitamin B-6) 50 Mg Tablet 50 MG PO DAILY Scheduled PRN Dimenhydrinate (Dramamine) 25 Mg Tab.chew 25 MG PO Q4H PRN PRN For Nausea/ Vomiting Ondansetron ODT (Zofran ODT) 4 Mg Tablet 4 MG PO Q4H PRN PRN For Nausea Promethazine (Promethazine) 25 Mg Tablet 25 MG PO Q6H PRN PRN For Nausea Promethazine Supp (Promethazine Supp) 25 Mg Supp 25 MG RECTAL Q8H PRN PRN For Nausea/Vomiting General Time Seen by MD: 19:58 Chief Complaint Vaginal bleeding... Hx Obtained From: Patient Arrived By: Walk-in Sudden in Onset?: No Onset Occurred: 5 - 8 hours ago Symptom Duration: Since onset Location: : Abdomen lower Quality: Cramping Radiation: Does not radiate Severity: Current: Mild Severity: Maximum: Moderate Pertinent Negative: Pt denies other symptoms : 2 Para: 1 Abortions: 1 Recent Healthcare: Recent doctor visit, Recent hospitalization Past Medical History Past Medical History Hx of palpitations Reports hx of possible thick blood when she was a teenager Past Surgical History None reported Smoking History Current Every Day Smoker Social History Alcohol Use: Denies alcohol use Drug Use: Denies drug use Other Social History: Good social support, Local resident Ambulatory Status Independent Review of Systems GI: Reports: Abdominal pain, Nausea Female: Reports: (8 weeks), Vaginal bleeding - abnl Neurologic: Reports: Dizziness, Lightheaded Complete sys rev & neg: except as marked. Physical Exam Initial Vital Signs Vital Signs (First) Date Time Temp Pulse Resp B/P Pulse Ox O2 Delivery O2 Flow Rate FiO2 01/28/17 18:54 36.7 92 17 97/64 96 Room Air Initial VS: Reviewed Head / Eyes: Atraumatic, Normocephalic, PERRL Neck: Supple, Non-tender, Full range of motion Extremities: Vascular intact, Neuro intact, No swelling (No calf swelling) , No tenderness (No calf tenderness) Skin: Warm, Dry, No cyanosis Neurologic: Alert, Oriented, Nonfocal Psychiatric: Mood/affect normal, Behavior normal, Normal thought content Female Genitourinary: Green Marketer present, Atraumatic, External genitalia NL Vaginal Bleeding / Discharge: Positive: Clots present (Large clots suctioned from vault + moderate amouns of blood clots present at cervix) FEMALE Normal vaginal mucosa Dilated cervix Products of conception present in cervix No active bleed General/Constitutional: Awake, Alert, No acute distress Appearance / Presentation: Positive: Pale (Slightly), Uncomfortable Respiratory / Chest: Atraumatic, Breath sounds NL, Breath sounds = bilat, No respiratory distress Cardiovascular: Heart rate NL, Regular rhythm, Heart sounds NL, No gallop, No murmurs, No rubs, Peripheral circulation NL, Pulses = bilaterally Abdomen: Atraumatic, Soft, Non-tender, No distention Interpretation & Diagnostics Lab Results Interpretation Result Diagram: 01/28/17194101/28/171941 Test 01/28/17 19:42 01/28/17 20:35 White Blood Count 16.5th/mm3 (3.8-10.1) Red Blood Count 4.90mil/mm3 (3.90-5.20) Hemoglobin 14.1g/dL (12.0-15.6) Hematocrit 39.9% (35.0-46.0) Mean Corpuscular Volume 81.4fL (81-100) Mean Corpuscular Hemoglobin 28.8pg (27.0-35.0) Mean Corpuscular Hemoglobin Concent 35.3% (32.0-37.0) Red Cell Distribution Width 14.1% (12.3-15.4) Platelet Count 259bil/L (150-400) Neutrophils (%) (Auto) 66.1% (40-74) Lymphocytes (%) (Auto) 24.0% (14-46) Monocytes (%) (Auto) 8.5% (4-12) Eosinophils (%) (Auto) 0.7% (0-5) Basophils (%) (Auto) 0.2% (0-3) Sodium Level 134mEq/L (134-144) Potassium Level 3.7mEq/L (3.5-5.2) Chloride Level 98mEq/L (97-108) Carbon Dioxide Level 20mmol/L (18-29) Blood Urea Nitrogen 5mg/dL (6-20) Creatinine 0.54mg/dL (0.57-1.00) Estimat Glomerular Filtration Rate 202mL/min (>59) Glucose Level 114mg/dL (60-99) Calcium Level 9.0mg/dL (8.5-10.1) Magnesium Level 1.9mg/dL (1.6-2.6) Total Bilirubin 0.6mg/dL (0.0-1.2) Aspartate Amino Transf (AST/SGOT) 31U/L (0-50) Alanine Aminotransferase (ALT/SGPT) 76U/L (0-32) Alkaline Phosphatase 65U/L (25-150) Total Protein 6.7g/dL (6.4-8.4) Albumin 3.7g/dL (3.4-5.0) Lipase 19U/L (13-60) Human Chorionic Gonadotropin, Qual 72848 (Negative) Prothrombin Time 10.0sec (8.1-12.5) Prothromb Time International Ratio 0.94ratio Hold Garcia Top Tube Received (Received) US Focused OB IMPRESSION: Thickened heterogeneous endometrial echo complex with no internal vascualrity. hematoma is favored. Retained products of concention cannont be ruled out. Exam Interpreted by: Radiologist Re-Eval/Medical Decision Med Decision/Clinical Course The patient is a 21 year old, 8 week female () who presents to the ED with significant vaginal bleeding that began this afternoon at 1600. The patient took a dose of methotrexate or elective this afternoon at 1300. Vaginal bleeding initially began at 1600 until she experienced sudden onset of cramping following by significant amount of vaginal blood loss. She filled the first pad within 5 minutes and has gone through ~6 pads in the past 4 hours. [facility] for [facility] bleeding. Associated symptoms include nausea, lightheadedness and dizziness. Here in the emergency department the patient is overall well-appearing. She is not tachycardic though is noted to be borderline hypotensive with a blood pressure in the 90s over the 50s to 60s. Orthostatic vital signs reveal mild decrease in blood pressure with standing and mild increase in heart rate though she reports that she does not become lightheaded when standing up and is asymptomatic with orthostatic vital sign testing. Patient was given the below medications: IV Zofran Dilaudid IV fluids Examination revealed extensive clotted blood in the vagina with an open cervix and products of conception present at the cervix. There was quite a bit of clotted blood there is no evidence of active hemorrhaging or significant ongoing bleeding. Transvaginal ultrasound obtained as below: Thickened heterogeneous endometrial echo complex with no internal vascualrity. hematoma is favored. Retained products of conception cannot be ruled out. LABS WBC - 16.5; otherwise unremarkable BUN - 5 Creat - 0.54 ALT - 76 Coags normal Overall presentation consistent with extensive bleeding in the setting of elective . At this point it appears that she has passed or is in the process of passing most of the products of conception. Patient was discussed with AIRVEYOR OPERATOR and her presentation thus far was reviewed. It was felt that given no evidence of significant ongoing bleeding that she could be safely managed on an outpatient basis. After receiving IV fluids patient reported feeling significantly better. She had no significant ongoing bleeding. She is sent home with strict return precautions. If she soaks through more than 1 pad an hour for the next 3-4 hours she is to return immediately. Rate of bleeding increases she is to return immediately. She will follow [facility] first thing tomorrow [facility] with [facility]. He develops any symptoms of worsening pain or lightheadedness she will return right away. She is comfortable with going home and does not desire to stay in the emergency department or be admitted for further observation. Prior to discharge follow-up and return precautions were reviewed in detail with the patient who verbalized understanding and agreement with the plan. The patient was discharged in stable condition. Re-Evaluation/Progress #1: Time of Eval: 22:12 Patient Status: Condition improved Re-Evaluation/Progress Note: Patient condition is re-evaluated. She is informed of her current and pending results. All questions about the intended treatment plan are addressed. Patient understands and agrees with the plan. Re-Evaluation/Progress #2: Time of Eval: 23:01 Patient Status: Condition improved Re-Evaluation/Progress Note: Orthostatic vitals stable. Patient is agreeabel to discharge at this time. Consultation : Call Returned at: 21:53 Cloth Hauler: Will see in office, Agrees with eval, Agrees with plan Note: Recommends orthostatic vital test - if stable, discharge with follow up. Counseled Regarding: Diagnosis, Lab results, Need for follow-up, When/why to return to ED Discharge & Departure Impression: Primary Impression: Vaginal bleeding Additional Impressions: complicated with hemorrhage Abdominal cramping Disposition: Home Discharge Condition All VS Reviewed: Yes Condition: Improved Additional Instructions: Thank you for seeking care at emergency room. Our primary goal today in the ED was to evaluate you for any life-threatening conditions. Your evaluation was reassuring. You will be discharged with a prescription for *[place]. * You have been prescribed a narcotic for pain relief. These drugs are usually combined with acetaminophen (Tylenol#3, Percocet, Darvocet, Anexsia, Vicodin) or aspirin (Empirin#3, Percodan, Synalogs-DC) for increased effect. Narcotics act on the central nervous system to reduce pain; they also impair mental alertness and physical abilities. We advise you not to drink alcohol, drive a car, or operate dangerous equipment when you are taking theses drugs. You can lessen stomach irritation from your medicine by taking it with meals or a full glass of water. Common side effects of narcotics are: Nausea and vomiting, heartburn, consitpation, dizziness, sleepiness, and mood changes. If you have bothersome side effects or symptoms of an allergic reaction (itching, hives, rash), stop taking your medicine and call your doctor or the emergency room right away. Please keep your narcotic medicine well out of the reach of children. Take Zofran as directed. You should follow-up with your primary doctor or vegetable cook in the next week for a recheck. You should return to the ED immediately if you develop increased vaginal bleeding (>1 pad per hour), worsening abdominal pain, lower extremity swelling, fevers, vomiting, cough, shortness of breath, chest pain, lightheadedness, dizziness, weakness or any other concerning signs or symptoms. Thank you for letting us partake in your care today. Referrals: [facility] (PCP) Karly Perla MD, Kayla Wilcox Attestation Portions of this note were transcribed by Weston Lim. I, Dr. Rizo, personally performed the history, physical exam and medical decision-making; I reviewed and confirmed the accuracy of the information in the transcribed note. Signed by: Weston Lim, 01/28/17. Corky Rizo MD Jan 28, 2017 20:48 WESTON LIM Jan 28, 2017 21:11
[2017-01-28 21:03] LABS: INR 0.94 ratio
[2017-01-28] MEDS ORDERED: _HYDROcodone/APAP 5-325 mg Tablet PO PRN (21:30)
[2017-01-28 22:02] VITALS: BP_SYST 104; BP_SYST 108; BP_SYST 91; BP_DIAS 52; BP_DIAS 57; BP_DIAS 58; PULSE 105; PULSE 75; PULSE 92; RESP 16; RESP 18; O2SAT 92; O2SAT 99
[2017-01-28] MEDS ORDERED: _Ondansetron ODT 4 mg Tablet PO PRN (22:15)
[2017-01-28 23:18] VITALS: BP 103/58; PULSE 92; RESP 14; O2SAT 98
--- NOTE | 2017-01-29 20:24 | DRSVH ---
PROCEDURE: US PELVIC SONOGRAM + TRANSVAGINAL SONOGRAM INDICATIONS: vag bleed, took MTX TECHNIQUE: Real-time scanning was performed of the pelvic organs, with image documentation. Additional endovagi nal scanning was necessary due to incomplete visualization of the adnexal and endometrial structures by transabdominal scanning. COMPARISON: None. FINDINGS: Transabdominal scanning: Limited scanning through the kidneys shows no hydronephrosis. No pathologi c free abdominal or pelvic fluid. Endovaginal scanning: Uterus: Uterus is normal in size and appearance. Endometrium is thickened and complex measuring up to 2.8 cm. Doppler assessment demonstrates no significant vascularity. Ovaries: Within normal physiologic limits. IMPRESSION: Thickened, complex, avascular appearance of the endometrial complex. Although findings m ay be related to retained hematoma, RPOC cannot be excluded. Recommend clinical correlation and if i ndicated short term followup ultrasound could be performed. Note: These findings are concordant with the preliminary interpretation. Dictated by: Kole DORSEY Interpreted: Lissy Ohara MD on 01/29/2017 at 9:09 Approved by: Lissy Ohara M.D. on 01/29/2017 at 20:22
== END 2017-01-28 23:21 | disposition home or self-care (01) ==
LOC: SED 18:40
DX: O03.9 Complete or unspecified spontaneous abortion without complication (principal); R42 Dizziness and giddiness; O99.331 Smoking (tobacco) complicating pregnancy, first trimester; F17.200 Nicotine dependence, unspecified, uncomplicated; Z3A.08 8 weeks gestation of pregnancy
CPT/HCPCS: 36415; 76830; 76856; 80053; 83690; 83735; 84703; 85025; 85610; 86850; 96361; 96374; 96375; 99285; J1170; J2405; J7030